=== PATIENT | female | born 1945 | race Caucasian/White ===

== ENCOUNTER 2021-08-20 16:41 | Inpatient (IN) | payer MEDICARE, BC, SELFPAY ==
[2021-08-20 17:22] VITALS: BMI 35.4
--- NOTE | 2021-08-20 18:43 | PC.NURSE ---
Pt arrived via stretcher/ambulance. Pt refused to sign a CV, Dr Dominguez signed a section 12. Pt refused to sign paperwork or participate in assessment paperwork. The pt is exit seeking at the moment. Will attempt to complete paperwork at later time with pt.
[2021-08-20 20:12] VITALS: BP 139/63; PULSE 76; RESP 16; TEMP 36.6; O2SAT 96
--- NOTE | 2021-08-21 05:14 | PC.NURSE ---
Pt isolated in room this evening except coming out twice to tell us she is leaving and we can give her things to other people. Pt argued that today was not Thur, 17. She finally returned back to bed after telling her that we will discus her stay here after breakfast. Pt would only answer I'm not answering any questions no matter who ask them. I am no bodies business She did allow vitals to be taken T 97.9 P76 R 18 BP 139/63 O2 96. Pt did not eat anything for dinner she stated but was not hungry. Pt was exit seeking the twice she got up, going to all doors to see if they open. Pt denied any pain and would not reply about medical history or current concerns.
[2021-08-21 07:30] VITALS: BP 143/76; PULSE 93; RESP 16; TEMP 36.2; O2SAT 100
[2021-08-21] MEDS: Losartan Potassium 50 MG TABLET 100 MG PO (10:06)
[2021-08-21] MEDS: Metoprolol Tartrate 25 MG TABLET PO (10:06)
[2021-08-21] MEDS: Cyanocobalamin (Vitamin B-12) 1,000 MCG TABLET 1000 MCG PO (10:06)
[2021-08-21] MEDS: Sertraline HCL 50 MG TABLET PO (10:23)
--- NOTE | 2021-08-21 10:28 | PC.NURSE ---
ordered meds for pt Germaine Palafox this AM. 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
--- NOTE | 2021-08-21 12:49 | MHC.CLN ---
NUTRITION ASKED PATIENT ABOUT DIABETES. SHE WOULD LIKE TO HAVE A DIABETIC DIET DURING ADMISSION. TAKES METFORMIN. DIET CHANGED TO DIABETIC 2000 KCALS.
--- NOTE | 2021-08-21 16:21 | HO.PSYADMNOT ---
HPI Date of Service: 08/21/21 Chief Complaint: depessive Sources of Information: patient interviewed, chart reviewed and crisis/core team assessment reviewed Additional Sources of Information: Family HPI Subjective Notes: Section 12B Healthcare Proxy: Yes Guardianship: No Narrative: the patient is a 76-year-old female, , living in an in-law apartment close to her son, with a limited prior psychiatric history referred from the emergency room of another hospital for psychotic symptoms and disorganized behavior. According to the crisis report, the patient was agitated, she was sexually disinhibited towards her son and aggressive towards her daughter in low. Also she was confused, and she needed to be Section 12 to the emergency room. The patient was transferred after being medically care from another emergency room to this facility and on admission, she refused to sign a conditional voluntary admission paperwork. She was assessed at bedside and she was angry, uncooperative and stating that she was going to leave tomorrow. She was a very poor historian. On admission, her son was contacted after the patient gave us permission to talk with him and apparently she has being declining in her mental abilities for the last 6 months with progressive short-term memory and several episodes of delirium that led her to the emergency room 3 times. Apparently there is no prior history of mental illness but she has a very strong family history of schizophrenia and her family. Past Psychiatric History: She had several admissions to the emergency room for disorganized behavior and paranoia in the last 6 months. According to the patient, her 1st psychiatric contact was 6 years ago when her and she was started on antidepressants that according to her does not work. Medical Evaluation Reviewed: Hospitalist Owen Pending [facility] Family History: On her maternal side of her family there were several members with schizophrenia, she has a now and that was institutionalized for psychosis Social History: she moved to [place] in the last months, she used to reside in [place] but she moved to this area and she lives in an independent apartment close to the property of her son. She is a , she has good social support under is no evidence of trauma in the past Substance History: denies Trauma History: denies Diagnostics Vital Signs (24Hr): Vital Signs - 24 hr 08/20/21 20:12 08/21/21 07:30 Temperature 97.9 F 97.1 F Pulse Rate 76 93 Respiratory Rate 16 16 Blood Pressure 139/63 143/76 H Pulse Oximetry 96 100 BMI result Body Mass Index 35.4 Meds/Allergies Meds Home Medications Atorvastatin Calcium (Atorvastatin Calcium 20 Mg Tablet) 20 mg PO BEDTIME [facility] Cyanocobalamin (Cyanocobalamin (Vitamin B-12) 1,000 Mcg Tablet) 1,000 mcg PO DAILY [facility] Last Admin: 08/21/21 10:06 Dose: 1,000 mcg Documented by: Losartan Potassium (Losartan Potassium 50 Mg Tablet) 100 mg PO DAILY [facility]; Protocol Last Admin: 08/21/21 10:06 Dose: 100 mg Documented by: Magnesium Oxide (Magnesium Oxide 400 Mg Tablet) 400 mg PO BID [facility] Metformin HCl (Metformin Hcl Er 500 Mg Tab.Er.24h) 500 mg PO DAILY [facility] Metoprolol Tartrate (Metoprolol Tartrate 25 Mg Tablet) 25 mg PO DAILY [facility]; Protocol Last Admin: 08/21/21 10:06 Dose: 25 mg Documented by: Ondansetron HCl (Ondansetron Odt 8 Mg Tab.Rapdis) 8 mg TRANSLINGU Q8H [facility] Last Admin: 08/21/21 10:09 Dose: Not Given Documented by: Sertraline HCl (Sertraline Hcl 50 Mg Tablet) 50 mg PO DAILY [facility] Last Admin: 08/21/21 10:23 Dose: 50 mg Documented by: Allergies Allergies Allergy/AdvReac Type Severity Reaction Status Date / Time No Known Allergies Allergy Verified 08/20/21 17:22 Mental Status Exam Mental Status Exam Patient Appearance: Disheveled Patient Orientation: Person and Situation Level of Consciousness: Awake and Disoriented Patient Behavior: Guarded, Suspicious and Belligerent Mood Description: Hostile and Labile Affect Description: Constricted Ability to Follow Directions: Fair Speech Pattern: Clear Hallucinations: None Delusions: Paranoid Ideation Thought Process: Illogical and Distracted Thought Content: positive for Perseveration, positive for Poverty of Content and positive for Loose Associations Judgement: Poor Assessment & Plan Assessment & Plan (1) Delirium: Status: Acute Code(s): R41.0 - Disorientation, unspecified Assessment and Plan: the patient is an elderly female with a long history of depression for the last 6 years after the of her that has being psychotic, paranoid and disorganized in the last months. She was brought due to inappropriate sexual behavior, dizzy vision and altered mental status most likely due to UTI. Plan 1. Continue same medications. 2. Start risperidone 0.25 p.o. t.i.d. to target psychosis. 3. Hospitalist consult (2) Psychosis: Status: Acute Code(s): F29 - Unspecified psychosis not due to a substance or known physiological condition Reason for continued inpatient stay Substantial Risk for: inability to function, rapid decompensation and med/psych decompensation
[2021-08-21 18:00] VITALS: BP 164/74; PULSE 70; RESP 18; TEMP 36.4; O2SAT 96
[2021-08-21] MEDS: Magnesium Oxide 400 MG TABLET PO (20:45)
[2021-08-21] MEDS: risperiDONE 0.25 MG TABLET PO (20:45)
[2021-08-21] MEDS: Atorvastatin Calcium 20 MG TABLET PO (20:45)
[2021-08-22 07:00] VITALS: BMI 35.4
[2021-08-22 07:13] LABS: MANUAL DIFF FLAG NO
[2021-08-22 07:16] LABS: Basophils Percent Auto 0.8 % (0-2); Eosinophils Absolute Auto 0.1 X10*3/uL (0.0-0.4); Eosinophils Percent Auto 2.3 % (0-4); Hematocrit 41.6 % (37.0-47.0); Hemoglobin 13.6 g/dl (12.0-16.0); Imm Gran Abs Auto 0.02 X10*3/uL (0.00-0.03); Imm Gran Pct Auto 0.4 % (0.0-0.4); Lymphocytes Percent Auto 19.1 % (20-40); Mean Corpuscular HGB Conc 32.7 g/dl (31.0-35.0); Mean Corpuscular Hemoglobin 26.5 pg (27.0-33.0); Mean Corpuscular Volume 80.9 fL (80.0-98.0); Mean Platelet Volume 11.1 fL (9.4-12.3); Monocytes Absolute Auto 0.5 X10*3/uL (0.1-1.2); Monocytes Percent Auto 8.5 % (2-11); Neutrophils Absolute Auto 3.7 x10*3/uL (2.0-8.3); Neutrophils Percent Auto 68.9 % (45-73); Platelet Count 151 X10*3/uL (160-400); Red Blood Count 5.14 X10*6/uL (4.20-5.50); Red Cell Distribution Width 14.5 % (11.0-16.0); White Blood Count 5.3 X10*3/uL (4.8-10.8)
[2021-08-22 07:29] LABS: Estimated Average Glucose 128 mg/dL; Hemoglobin A1c % 6.1 %
[2021-08-22 07:30] LABS: Alanine Aminotransferase 6 U/L (0-31); Albumin Level 3.9 g/dL (3.5-5.0); Alkaline Phosphatase 58 U/L (39-117); Anion Gap 14 (12-20); Aspartate Amino Transferase 10 U/L (5-31); Bilirubin Direct 0.3 mg/dL (0.0-0.5); Bilirubin Total 0.8 mg/dL (0.0-1.0); Blood Urea Nitrogen 18 mg/dL (9-16); Calcium 9.4 mg/dL (8.4-10.2); Carbon Dioxide 27 mmol/L (22-29); Chloride 104 mmol/L (96-108); Cholesterol 142 mg/dL; Creatinine Clr Calc Pharmacy 45.1; Estimated Glomerular Filt Rate 46; Glucose Random 145 mg/dL (60-115); HDL Cholesterol 43 mg/dL; LDL Cholesterol Calculated 76 mg/dl; Potassium 3.9 mmol/L (3.3-5.1); Sodium 141 mmol/L (135-145); Total Protein 6.3 g/dL (6.5-8.0); Triglycerides 117 mg/dL
[2021-08-22] MEDS: Losartan Potassium 50 MG TABLET 100 MG PO (08:51)
[2021-08-22] MEDS: risperiDONE 0.25 MG TABLET PO (08:51)
[2021-08-22] MEDS: Metoprolol Tartrate 25 MG TABLET PO (08:51)
[2021-08-22] MEDS: Magnesium Oxide 400 MG TABLET PO ×2 (08:51→20:03)
[2021-08-22] MEDS: metFORMIN HCl ER 500 MG TAB.ER.24H PO (08:51)
[2021-08-22] MEDS: Cyanocobalamin (Vitamin B-12) 1,000 MCG TABLET 1000 MCG PO (08:51)
[2021-08-22] MEDS: Sertraline HCL 50 MG TABLET PO (08:52)
[2021-08-22] MEDS: Ondansetron ODT 8 MG TAB.RAPDIS TRANSLINGU ×2 (08:52→20:02)
[2021-08-22 10:00] VITALS: BP 124/61; PULSE 60
[2021-08-22 11:04] VITALS: BP 185/79; PULSE 76; RESP 16; TEMP 36.1; O2SAT 98
--- NOTE | 2021-08-22 15:58 | HO.HSGERICON ---
History of Present Illness Data of Consult Service Date: 08/22/21 Primary Care Provider: Unknown Physician HPI Reason for consult: dm, htn 76F admitted to inpatient psychiatry. patient has medically history of DM, hld and htn. she denies chest pain, fevers, sob. Review of Systems Review of Systems: Yes all other systems are reviewed and are negative [facility] Medical History (Updated 08/22/21 @ 16:11 by Ramon Salas MD) Diabetes HLD (hyperlipidemia) HTN (hypertension) Family History Mother Schizophrenia Social History Household Members: Family Housing: House Do you presently have visiting nurse or other home services: No Unable to assess alcohol history related to: Refusing to respond Patient Tobacco Use Status: Former Tobacco user Quit Date: 12/07/93 Tobacco use type: Cigarette Years Smoked: 27 Smoked in Last 30 Days: No e-Cigarette/Vaping Use: Currently Using Frequency of e-Cigarette/Vaping Use: multi times per day Patient Interested in Nicotine Replacement: No Patient Given Instructions on How to Stop Smoking: Yes Date Education Initiated: 08/20/21 Second Hand Smoke Exposure: No Substance Use Type: Marijuana Substance Use Frequency: Daily Last Used Substance: Unknown Currently Displaying Signs/Symptoms of Drug Intoxication Withdrawal: No Any prior treatment program specific to substance use: No Have you been hit, kicked, punched, or otherwise hurt by someone within the past year? If so, by whom?: No Do you feel safe in your current relationship?: No Current Relationship Is there a partner from a previous relationship who is making you feel unsafe now?: No Are you made to feel afraid or neglected: No Advance Directives: No Advance Directives Information Provided: Yes Advance Directives on File: No Do you have thoughts of harming others: None Do you have a plan to hurt others: No Plan Recently lost weight without trying: No Eating poorly because of decreased appetite: No Nutrition Risks: No Nutritional Risk Patient : No : No Poor oral hygiene: Yes service: No Sexual orientation: Straight/Heterosexual Meds Allergies Allergy/AdvReac Type Severity Reaction Status Date / Time No Known Allergies Allergy Verified 08/20/21 17:22 Active Medications: Current Medications Atorvastatin Calcium (Atorvastatin Calcium 20 Mg Tablet) 20 mg PO BEDTIME [facility] Last Admin: 08/21/21 20:45 Dose: 20 mg Documented by: Cyanocobalamin (Cyanocobalamin (Vitamin B-12) 1,000 Mcg Tablet) 1,000 mcg PO DAILY [facility] Last Admin: 08/22/21 08:51 Dose: 1,000 mcg Documented by: Losartan Potassium (Losartan Potassium 50 Mg Tablet) 100 mg PO DAILY [facility]; Protocol Last Admin: 08/22/21 08:51 Dose: 100 mg Documented by: Magnesium Oxide (Magnesium Oxide 400 Mg Tablet) 400 mg PO BID [facility] Last Admin: 08/22/21 08:51 Dose: 400 mg Documented by: Metformin HCl (Metformin Hcl Er 500 Mg Tab.Er.24h) 500 mg PO DAILY [facility] Last Admin: 08/22/21 08:51 Dose: 500 mg Documented by: Metoprolol Tartrate (Metoprolol Tartrate 25 Mg Tablet) 25 mg PO DAILY [facility]; Protocol Last Admin: 08/22/21 08:51 Dose: 25 mg Documented by: Ondansetron HCl (Ondansetron Odt 8 Mg Tab.Rapdis) 8 mg TRANSLINGU Q8H [facility] Last Admin: 08/22/21 08:52 Dose: 8 mg Documented by: Risperidone (Risperidone 0.25 Mg Tablet) 0.25 mg PO BID [facility] Last Admin: 08/22/21 08:51 Dose: 0.25 mg Documented by: Sertraline HCl (Sertraline Hcl 50 Mg Tablet) 50 mg PO DAILY [facility] Last Admin: 08/22/21 08:52 Dose: 50 mg Documented by: Home Medications Medication Instructions Recorded Confirmed Last Taken Type atorvastatin 20 mg tablet 20 mg PO BEDTIME 08/20/21 08/20/21 Unknown History cyanocobalamin (vitamin B-12) 1,000 mcg PO DAILY 08/20/21 08/20/21 Unknown History 1,000 mcg tablet (Vitamin B-12) losartan 100 mg tablet 100 mg PO DAILY 08/20/21 08/20/21 Unknown History magnesium oxide 400 mg PO BID 08/20/21 08/20/21 Unknown History metformin 500 mg tablet,extended 500 mg PO DAILY 08/20/21 08/20/21 Unknown History release 24 hr metoprolol tartrate 50 mg tablet 25 mg PO DAILY 08/20/21 08/20/21 Unknown History (Lopressor) ondansetron 8 mg disintegrating 8 mg PO Q8H 08/20/21 08/20/21 Unknown History tablet sertraline 50 mg tablet 50 mg PO DAILY 08/20/21 08/20/21 Unknown History Results Labs CBC and Chem 7: 08/22/21 06:59 08/22/21 06:59 Labs: Laboratory Results - last 24 hr 08/22/21 08/22/21 08/22/21 06:59 06:59 06:59 MCV 80.9 MCH 26.5 L MCHC 32.7 RDW 14.5 Plt Count 151 L MPV 11.1 Immature Gran % (Auto) 0.4 Neut % (Auto) 68.9 Lymph % (Auto) 19.1 L [place] % (Auto) 8.5 Eos % (Auto) 2.3 Baso % (Auto) 0.8 Lymph # (Auto) 1.0 L [place] # (Auto) 0.5 Eos # (Auto) 0.1 Baso # (Auto) 0.0 Abs Immat Gran (auto) 0.02 Absolute Neuts (auto) 3.7 Absolute Nucleated RBC 0.000 Nucleated RBC % (auto) 0.0 Anion Gap 14 Estim Creat Clear Calc 45.1 Estimated GFR 46 Random Glucose 145 H Estimat Average Glucose 128 Hemoglobin A1c % 6.1 Calcium 9.4 Total Bilirubin 0.8 Direct Bilirubin 0.3 AST 10 ALT 6 Alkaline Phosphatase 58 Total Protein 6.3 L Albumin 3.9 Triglycerides 117 Cholesterol 142 LDL Cholesterol, Calc 76 HDL Cholesterol 43 TSH 0.70 Assessment and Plan (1) HTN (hypertension): Status: Acute (2) Diabetes: Status: Acute Plan 76F admitted to inpatient psychiatry DM continue metformin, diabetic diet HTN lopressor, losartan hld statin Physical Exam Vital Signs: Last Vital Signs Temp 97 F 08/22/21 11:04 Pulse 76 08/22/21 11:04 Resp 16 08/22/21 11:04 BP 185/79 H 08/22/21 11:04 Pulse Ox 98 08/22/21 11:04 BMI result Body Mass Index 35.4 General: AO X 3, no acute distress Resp: CTA bilateral, no accessory muscles used CVS: S1,S2,RRR GI: soft, non tender, non distended Neuro: motor grossly intact, alert Psych: appropriate affect, appropriate insight Neuro Cranial nerves: Yes CN's II-XII intact bilaterally
--- NOTE | 2021-08-22 16:09 | P.PNPSI_ITS ---
Subjective Subjective Date of Service: 08/22/21 Reason For Visit: depessive Subjective Notes: Section 12B Interim History: the nursing staff reported the patient has been paranoid and seclusive mostly in her room, unable to participate in groups or activities in the facility. She was notice that she sometimes he readable at times. On interview, the patient denies new symptoms she refused to engage in the conversation and she stated she was feeling fine. She is compliant with treatment but she looks confused and disoriented. No side effects with a low dose of risperidone 0.5 mg p.o. b.i.d., no evidence of EPS. We will increase the dose of Risperdal today Mental Status Exam Mental Status Exam Patient Appearance: Appropriate Patient Orientation: Person Level of Consciousness: Follows Commands Patient Behavior: Guarded, Passive and Suspicious Mood Description: Fearful and Blunted Affect Description: Labile Patient Cognition Impaired: Yes Ability to Follow Directions: Fair Speech Pattern: Appropriate Hallucinations: None Delusions: Paranoid Ideation Thought Process: Evasive and Slowed Thinking Thought Content: positive for Liberty and positive for Poverty of Content Judgement: Poor Diagnostics Vital Signs (24Hr): Vital Signs - 24 hr 08/21/21 18:00 08/22/21 11:04 Temperature 97.6 F 97 F Pulse Rate 70 76 Respiratory Rate 18 16 Blood Pressure 164/74 H 185/79 H Pulse Oximetry 96 98 BMI result Body Mass Index 35.4 Labs Results: 08/22/21 06:59 08/22/21 06:59 Labs: Laboratory Results - last 48 hr 08/22/21 08/22/21 08/22/21 06:59 06:59 06:59 WBC 5.3 RBC 5.14 Hgb 13.6 Hct 41.6 MCV 80.9 MCH 26.5 L MCHC 32.7 RDW 14.5 Plt Count 151 L MPV 11.1 Immature Gran % (Auto) 0.4 Neut % (Auto) 68.9 Lymph % (Auto) 19.1 L [place] % (Auto) 8.5 Eos % (Auto) 2.3 Baso % (Auto) 0.8 Lymph # (Auto) 1.0 L [place] # (Auto) 0.5 Eos # (Auto) 0.1 Baso # (Auto) 0.0 Abs Immat Gran (auto) 0.02 Absolute Neuts (auto) 3.7 Absolute Nucleated RBC 0.000 Nucleated RBC % (auto) 0.0 Sodium 141 Potassium 3.9 Chloride 104 Carbon Dioxide 27 Anion Gap 14 BUN 18 H Creatinine 1.15 Estim Creat Clear Calc 45.1 Estimated GFR 46 Random Glucose 145 H Estimat Average Glucose 128 Hemoglobin A1c % 6.1 Calcium 9.4 Total Bilirubin 0.8 Direct Bilirubin 0.3 AST 10 ALT 6 Alkaline Phosphatase 58 Total Protein 6.3 L Albumin 3.9 Triglycerides 117 Cholesterol 142 LDL Cholesterol, Calc 76 HDL Cholesterol 43 TSH 0.70 Medications Medications Current Medications Atorvastatin Calcium (Atorvastatin Calcium 20 Mg Tablet) 20 mg PO BEDTIME [facility] Last Admin: 08/21/21 20:45 Dose: 20 mg Documented by: Cyanocobalamin (Cyanocobalamin (Vitamin B-12) 1,000 Mcg Tablet) 1,000 mcg PO DAILY [facility] Last Admin: 08/22/21 08:51 Dose: 1,000 mcg Documented by: Losartan Potassium (Losartan Potassium 50 Mg Tablet) 100 mg PO DAILY [facility]; Mary col Last Admin: 08/22/21 08:51 Dose: 100 mg Documented by: Magnesium Oxide (Magnesium Oxide 400 Mg Tablet) 400 mg PO BID [facility] Last Admin: 08/22/21 08:51 Dose: 400 mg Documented by: Metformin HCl (Metformin Hcl Er 500 Mg Tab.Er.24h) 500 mg PO DAILY [facility] Last Admin: 08/22/21 08:51 Dose: 500 mg Documented by: Metoprolol Tartrate (Metoprolol Tartrate 25 Mg Tablet) 25 mg PO DAILY [facility]; Protocol Last Admin: 08/22/21 08:51 Dose: 25 mg Documented by: Ondansetron HCl (Ondansetron Odt 8 Mg Tab.Rapdis) 8 mg TRANSLINGU Q8H [facility] Last Admin: 08/22/21 08:52 Dose: 8 mg Documented by: Risperidone (Risperidone 0.25 Mg Tablet) 0.25 mg PO BID [facility] Last Admin: 08/22/21 08:51 Dose: 0.25 mg Documented by: Sertraline HCl (Sertraline Hcl 50 Mg Tablet) 50 mg PO DAILY [facility] Last Admin: 08/22/21 08:52 Dose: 50 mg Documented by: Allergies Allergies Allergy/AdvReac Type Severity Reaction Status Date / Time No Known Allergies Allergy Verified 08/20/21 17:22 Assessment & Plan Assessment & Plan (1) Delirium: Status: Acute Code(s): R41.0 - Disorientation, unspecified Assessment and Plan: the patient is an elderly female with a long history of depression for the last 6 years after the of her that has being psychotic, pa ranoid and disorganized in the last months. She was brought due to inappropriate sexual behavior, dizzy vision and altered mental status most likely due to UTI. Plan 1. Continue same medications. 2. increase risperidone up to 0.5 mg p.o. b.i.d. to target psychosis. 3. Hospitalist consult (2) Psychosis: Status: Acute Code(s): F29 - Unspecified psychosis not due to a substance or known physiological condition I spent minutes with the patient and/or on the patient floor today, greater than?50% of which was spent counseling/coordinating care. Reason for contiued inpatient stay Substantial Risk for: inability to function, rapid decompensation and med/psych decompensation
[2021-08-22] MEDS: risperiDONE 0.25 MG TABLET 0.5 MG PO (20:00)
[2021-08-22] MEDS: Atorvastatin Calcium 20 MG TABLET PO (20:01)
[2021-08-22 20:18] VITALS: BP 106/54; PULSE 66; RESP 17; TEMP 36.4; O2SAT 95
[2021-08-23 06:00] VITALS: BP 134/60; PULSE 69; RESP 14; TEMP 36.6; O2SAT 98
[2021-08-23] MEDS: Cyanocobalamin (Vitamin B-12) 1,000 MCG TABLET 1000 MCG PO (08:23)
[2021-08-23] MEDS: metFORMIN HCl ER 500 MG TAB.ER.24H PO (08:23)
[2021-08-23] MEDS: Magnesium Oxide 400 MG TABLET PO ×2 (08:24→20:11)
[2021-08-23] MEDS: Ondansetron ODT 8 MG TAB.RAPDIS TRANSLINGU (08:24)
[2021-08-23] MEDS: Metoprolol Tartrate 25 MG TABLET PO (08:24)
[2021-08-23] MEDS: Sertraline HCL 50 MG TABLET PO (08:24)
[2021-08-23] MEDS: Losartan Potassium 50 MG TABLET 100 MG PO (08:24)
[2021-08-23] MEDS: risperiDONE 0.25 MG TABLET 0.5 MG PO ×2 (08:25→20:12)
[2021-08-23 14:05] LABS: Appearance Urine CLEAR; Color Urine YELLOW; Glucose Urine UA NEG (NEG); Leukocyte Esterase Urine 1+ (NEG); Nitrite Urine NEG (NEG); PH 5.5 (5.0-8.0); Specific Gravity - Urine >= 1.030 (1.005-1.025); Urine Blood NEG (NEG); Urine Ketones NEG (NEG); Urine Protein NEG (NEG-TRACE)
[2021-08-23 14:31] LABS: Bacteria Urine 1+ /LPF; RBC Urine 0-2 /HPF (0); Squamous Epithelial Cell Urine 2+ /LPF
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
[2021-08-23] MEDS: Atorvastatin Calcium 20 MG TABLET PO (20:11)
[2021-08-23 20:14] VITALS: BP 112/56; PULSE 67; RESP 17; TEMP 36.5; O2SAT 97
[2021-08-23] MEDS: traZODone HCL 25 MG HALFTAB PO (21:46)
[2021-08-23] MEDS: Acetaminophen 325 MG TABLET 650 MG PO (21:46)
[2021-08-24 06:00] VITALS: BP 143/76; PULSE 73; TEMP 36.1; O2SAT 94
[2021-08-24] MEDS: Magnesium Oxide 400 MG TABLET PO (08:57)
[2021-08-24] MEDS: Losartan Potassium 50 MG TABLET 100 MG PO (08:57)
[2021-08-24] MEDS: Cyanocobalamin (Vitamin B-12) 1,000 MCG TABLET 1000 MCG PO (08:57)
[2021-08-24] MEDS: metFORMIN HCl ER 500 MG TAB.ER.24H PO (08:57)
[2021-08-24] MEDS: risperiDONE 0.25 MG TABLET 0.5 MG PO (08:57)
[2021-08-24] MEDS: Sertraline HCL 50 MG TABLET PO (08:57)
[2021-08-24] MEDS: Metoprolol Tartrate 25 MG TABLET PO (08:57)
--- NOTE | 2021-08-24 11:30 | P.PNPSI_ITS ---
Subjective Subjective Date of Service: 08/24/21 Reason For Visit: depessive Interim History: pt encountered lying in her bed, awake. irritable and verbally aggressive/abusive. certain it is august 27, saying she saw it on her menu, and becomes combative when informed it is not yet the and that perhaps she is mistaken. interview ends rather abruptly due to verbal aggression. per staff, observed to be sleeping but claims she is not sleeping. Mental Status Exam Mental Status Exam Narrative: dressed in hospital attire, lying in bed. cooperative with interview. no PMA/PMR. speech nml in rate, amount, loudness, tone, latency. thoughts linear and logical; cognitively impaired, however. affect constricted, moderately labile. no SI/HI/AVH expressed. Diagnostics Vital Signs (24Hr): Vital Signs - 24 hr 08/23/21 20:14 08/24/21 06:00 Temperature 97.7 F 96.9 F Pulse Rate 67 73 Respiratory Rate 17 Blood Pressure 112/56 L 143/76 H Pulse Oximetry 97 94 BMI result Body Mass Index 35.4 Labs Results: 08/22/21 06:59 08/22/21 06:59 Labs: Laboratory Results - last 48 hr 08/23/21 13:00 Urine Color YELLOW Urine Appearance CLEAR Urine pH 5.5 Ur Specific [place] >= 1.030 H Urine Protein NEG Urine Glucose (UA) NEG Urine Ketones NEG Urine Blood NEG Urine Nitrite NEG Ur Leukocyte Esterase 1+ H Urine RBC 0-2 Urine WBC 10-14 H Ur Squamous Epith Cells 2+ Urine Bacteria 1+ Medications Medications Current Medications Acetaminophen (Acetaminophen 325 Mg Tablet) 650 mg PO Q6H PRN PRN Reason: Pain, Mild (Pain Scale 1-3) Last Admin: 08/23/21 21:46 Dose: 650 mg Documented by: Atorvastatin Calcium (Atorvastatin Calcium 20 Mg Tablet) 20 mg PO BEDTIME [facility] Last Admin: 08/23/21 20:11 Dose: 20 mg Documented by: Cyanocobalamin (Cyanocobalamin (Vitamin B-12) 1,000 Mcg Tablet) 1,000 mcg PO DAILY [facility] Last Admin: 08/24/21 08:57 Dose: 1,000 mcg Documented by: Losartan Potassium (Losartan Potassium 50 Mg Tablet) 100 mg PO DAILY [facility]; Protocol Last Admin: 08/24/21 08:57 Dose: 100 mg Documented by: Magnesium Oxide (Magnesium Oxide 400 Mg Tablet) 400 mg PO BID [facility] Last Admin: 08/24/21 08:57 Dose: 400 mg Documented by: Metformin HCl (Metformin Hcl Er 500 Mg Tab.Er.24h) 500 mg PO DAILY [facility] Last Admin: 08/24/21 08:57 Dose: 500 mg Documented by: Metoprolol Tartrate (Metoprolol Tartrate 25 Mg Tablet) 25 mg PO DAILY [facility]; Protocol Last Admin: 08/24/21 08:57 Dose: 25 mg Documented by: Ondansetron HCl (Ondansetron Odt 8 Mg Tab.Rapdis) 8 mg TRANSLINGU Q8H [facility] Last Admin: 08/24/21 04:24 Dose: Not Given Documented by: Risperidone (Risperidone 0.25 Mg Tablet) 0.5 mg PO BID [facility] Last Admin: 08/24/21 08:57 Dose: 0.5 mg Documented by: Risperidone (Risperidone 0.25 Mg Tablet) 0.25 mg PO Q4H PRN PRN Reason: Anxiety Sertraline HCl (Sertraline Hcl 50 Mg Tablet) 50 mg PO DAILY [facility] Last Admin: 08/24/21 08:57 Dose: 50 mg Documented by: Trazodone HCl (Trazodone Hcl 25 Mg Halftab) 25 mg PO BEDTIME PRN PRN Reason: Insomnia Last Admin: 08/23/21 21:46 Dose: 25 mg Documented by: Allergies Allergies Allergy/AdvReac Type Severity Reaction Status Date / Time No Known Allergies Allergy Verified 08/20/21 17:22 Assessment & Plan Assessment & Plan (1) Delirium: Status: Acute Code(s): R41.0 - Disorientation, unspecified Assessment and Plan: the patient is an elderly female with a long history of depression for the last 6 years after the of her that has being psychotic, paranoid and disorganized in the last months. She was brought due to inappropriate sexual behavior, dizzy vision and altered mental status most likely due to UTI. Plan 1. Continue same medications. 2. increase risperidone up to 0.5 mg p.o. b.i.d. to target psychosis. 3. Hospitalist consult (2) Psychosis: Status: Acute Code(s): F29 - Unspecified psychosis not due to a substance or known physiological condition (3) Diabetes: Status: Acute Code(s): E11.9 - Type 2 diabetes mellitus without complications (4) HTN (hypertension): Status: Acute Code(s): I10 - Essential (primary) hypertension I spent minutes with the patient and/or on the patient floor today, greater than?50% of which was spent counseling/coordinating care. Reason for contiued inpatient stay Substantial Risk for: inability to function and rapid decompensation
[2021-08-24 18:00] VITALS: BP 116/58; PULSE 65; RESP 17; TEMP 36.6; O2SAT 96
--- NOTE | 2021-08-24 21:49 | PC.NURSE ---
pt became paranoid about myself and other nurse plotting with her medications. she stated that she has jennifer and can hear everything we say through her mind. she is not medication compliant. she has been offered trazadone which she states makes her jittery. she states that she takes a medicine at home for sleep that starts with the letter p. she is unsure of the name but is sure the dose is 50 mg. she states that Benadryl will also make her jittery. she is upset that i don't know the side effects she experiences with trazadone,Benadryl,and Lipitor. she states that she will not take any medications tonight. she adamantly refuses all medications at this juncture.
[2021-08-25 06:00] VITALS: BP 130/69; PULSE 63; TEMP 35.8; O2SAT 95
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
--- NOTE | 2021-08-25 10:52 | HO.PSYCHPN ---
Subjective Subjective Date of Service: 08/25/21 Reason For Visit: depessive Interim History: pt found lying in her bed with lights out, awake. irritable, dismissive. states she has already been discharged and is being held against her will. states MD is aware of this and it is a human rights violation. states she will be taking you down with me. she then instructs MD to leave her room. per staff, refused meds last evening. agitated, yelling trying exits janny. calm this morning. Mental Status Exam Mental Status Exam Narrative: adequately dressed and groomed, lying in bed. not cooperative with interview. no PMA/PMR. speech nml in rate, incr in amount, and loudness. nml tone, decr latency. thoughts illogical and delusional. affect constricted, moderately labile. no SI/HI/AVH expressed. Diagnostics Vital Signs (24Hr): Vital Signs - 24 hr 08/24/21 18:00 Temperature 97.9 F Pulse Rate 65 Respiratory Rate 17 Blood Pressure 116/58 L Pulse Oximetry 96 BMI result Body Mass Index 35.4 Labs Results: 08/22/21 06:59 08/22/21 06:59 Labs: Laboratory Results - last 48 hr 08/23/21 13:00 Urine Color YELLOW Urine Appearance CLEAR Urine pH 5.5 Ur Specific [place] >= 1.030 H Urine Protein NEG Urine Glucose (UA) NEG Urine Ketones NEG Urine Blood NEG Urine Nitrite NEG Ur Leukocyte Esterase 1+ H Urine RBC 0-2 Urine WBC 10-14 H Ur Squamous Epith Cells 2+ Urine Bacteria 1+ Medications Medications Current Medications Acetaminophen (Acetaminophen 325 Mg Tablet) 650 mg PO Q6H PRN PRN Reason: Pain, Mild (Pain Scale 1-3) Last Admin: 08/23/21 21:46 Dose: 650 mg Documented by: Atorvastatin Calcium (Atorvastatin Calcium 20 Mg Tablet) 20 mg PO BEDTIME [facility] Last Admin: 08/24/21 21:46 Dose: Not Given Documented by: Cyanocobalamin (Cyanocobalamin (Vitamin B-12) 1,000 Mcg Tablet) 1,000 mcg PO DAILY [facility] Last Admin: 08/24/21 08:57 Dose: 1,000 mcg Documented by: Losartan Potassium (Losartan Potassium 50 Mg Tablet) 100 mg PO DAILY [facility]; Protocol Last Admin: 08/24/21 08:57 Dose: 100 mg Documented by: Magnesium Oxide (Magnesium Oxide 400 Mg Tablet) 400 mg PO BID [facility] Last Admin: 08/24/21 22:02 Dose: Not Given Documented by: Metformin HCl (Metformin Hcl Er 500 Mg Tab.Er.24h) 500 mg PO DAILY [facility] Last Admin: 08/24/21 08:57 Dose: 500 mg Documented by: Metoprolol Tartrate (Metoprolol Tartrate 25 Mg Tablet) 25 mg PO DAILY [facility]; Protocol Last Admin: 08/24/21 08:57 Dose: 25 mg Documented by: Ondansetron HCl (Ondansetron Odt 8 Mg Tab.Rapdis) 8 mg TRANSLINGU Q8H [facility] Last Admin: 08/25/21 04:27 Dose: Not Given Documented by: Risperidone (Risperidone 0.25 Mg Tablet) 0.5 mg PO BID [facility] Last Admin: 08/24/21 21:48 Dose: Not Given Documented by: Risperidone (Risperidone 0.25 Mg Tablet) 0.25 mg PO Q4H PRN PRN Reason: Anxiety Sertraline HCl (Sertraline Hcl 50 Mg Tablet) 50 mg PO DAILY [facility] Last Admin: 08/24/21 08:57 Dose: 50 mg Documented by: Trazodone HCl (Trazodone Hcl 25 Mg Halftab) 25 mg PO BEDTIME PRN PRN Reason: Insomnia Last Admin: 08/23/21 21:46 Dose: 25 mg Documented by: Allergies Allergies Allergy/AdvReac Type Severity Reaction Status Date / Time No Known Allergies Allergy Verified 08/20/21 17:22 Assessment & Plan Assessment & Plan (1) Delirium: Status: Acute Code(s): R41.0 - Disorientation, unspecified Assessment and Plan: the patient is an elderly female with a long history of depression for the last 6 years after the of her that has being psychotic, paranoid and disorganized in the last months. She was brought due to inappropriate sexual behavior, dizzy vision and altered mental status most likely due to UTI. Plan 1. Continue same medications. 2. increase risperidone up to 0.5 mg p.o. b.i.d. to target psychosis. 3. Hospitalist consult (2) Psychosis: Status: Acute Code(s): F29 - Unspecified psychosis not due to a substance or known physiological condition (3) Diabetes: Status: Acute Code(s): E11.9 - Type 2 diabetes mellitus without complications (4) HTN (hypertension): Status: Acute Code(s): I10 - Essential (primary) hypertension I spent minutes with the patient and/or on the patient floor today, greater than?50% of which was spent counseling/coordinating care. Reason for contiued inpatient stay Substantial Risk for: inability to function and rapid decompensation
[2021-08-25 18:00] VITALS: BP 168/73; PULSE 82; RESP 17; TEMP 36.6; O2SAT 98
[2021-08-26 08:49] VITALS: BP 164/78; PULSE 86; RESP 15; TEMP 36.5; O2SAT 99
[2021-08-26] MEDS: Sertraline HCL 50 MG TABLET PO (09:41)
[2021-08-26] MEDS: Losartan Potassium 50 MG TABLET 100 MG PO (09:41)
[2021-08-26] MEDS: metFORMIN HCl ER 500 MG TAB.ER.24H PO (09:42)
[2021-08-26] MEDS: Metoprolol Tartrate 25 MG TABLET PO (09:42)
[2021-08-26] MEDS: Cyanocobalamin (Vitamin B-12) 1,000 MCG TABLET 1000 MCG PO (09:42)
[2021-08-26] MEDS: risperiDONE 0.25 MG TABLET 0.5 MG PO ×2 (09:42→20:12)
[2021-08-26] MEDS: Magnesium Oxide 400 MG TABLET PO ×2 (09:43→20:12)
[2021-08-26] MEDS: Ondansetron ODT 8 MG TAB.RAPDIS TRANSLINGU ×3 (09:43→17:58)
--- NOTE | 2021-08-26 19:39 | HO.PSYCHPN ---
Subjective Subjective Date of Service: 08/26/21 Reason For Visit: depessive Interim History: much brighter in patient's room today, pt correspondingly more pleasant. not dismissive, responsive to MD's question of how he might help pt today. pt states she is having difficulty sleeping. she declines trazodone, saying it does not agree with her. she states she has not tried atarax, however, and would like to. per staff, exit-seeking. refused medications and dinner. slept well overnight, no outbursts last evening. Mental Status Exam Mental Status Exam Narrative: adequately dressed and groomed, lying in bed. cooperative with interview. no PMA/PMR. speech nml in rate, amount, and loudness. nml tone, latency. thoughts logical and no expression of delusion or paranoia. affect constricted, non-labile. no SI/HI/AVH expressed. Diagnostics Vital Signs (24Hr): Vital Signs - 24 hr 08/26/21 08:49 Temperature 97.7 F Pulse Rate 86 Respiratory Rate 15 Blood Pressure 164/78 H Pulse Oximetry 99 BMI result Body Mass Index 35.4 Labs Results: 08/22/21 06:59 08/22/21 06:59 Medications Medications Current Medications Acetaminophen (Acetaminophen 325 Mg Tablet) 650 mg PO Q6H PRN PRN Reason: Pain, Mild (Pain Scale 1-3) Last Admin: 08/23/21 21:46 Dose: 650 mg Documented by: Atorvastatin Calcium (Atorvastatin Calcium 20 Mg Tablet) 20 mg PO BEDTIME [facility] Last Admin: 08/25/21 20:03 Dose: Not Given Documented by: Cyanocobalamin (Cyanocobalamin (Vitamin B-12) 1,000 Mcg Tablet) 1,000 mcg PO DAILY [facility] Last Admin: 08/26/21 09:42 Dose: 1,000 mcg Documented by: Hydroxyzine HCl (Hydroxyzine Hcl 25 Mg Tablet) 25 mg PO BEDTIME [facility] Losartan Potassium (Losartan Potassium 50 Mg Tablet) 100 mg PO DAILY [facility]; Protocol Last Admin: 08/26/21 09:41 Dose: 100 mg Documented by: Magnesium Oxide (Magnesium Oxide 400 Mg Tablet) 400 mg PO BID [facility] Last Admin: 08/26/21 09:43 Dose: 400 mg Documented by: Metformin HCl (Metformin Hcl Er 500 Mg Tab.Er.24h) 500 mg PO DAILY [facility] Last Admin: 08/26/21 09:42 Dose: 500 mg Documented by: Metoprolol Tartrate (Metoprolol Tartrate 25 Mg Tablet) 25 mg PO DAILY [facility]; Protocol Last Admin: 08/26/21 09:42 Dose: 25 mg Documented by: Ondansetron HCl (Ondansetron Odt 8 Mg Tab.Rapdis) 8 mg TRANSLINGU Q8H [facility] Last Admin: 08/26/21 17:58 Dose: 8 mg Documented by: Risperidone (Risperidone 0.25 Mg Tablet) 0.5 mg PO BID [facility] Last Admin: 08/26/21 09:42 Dose: 0.5 mg Documented by: Risperidone (Risperidone 0.25 Mg Tablet) 0.25 mg PO Q4H PRN PRN Reason: Anxiety Sertraline HCl (Sertraline Hcl 50 Mg Tablet) 50 mg PO DAILY [facility] Last Admin: 08/26/21 09:41 Dose: 50 mg Documented by: Trazodone HCl (Trazodone Hcl 25 Mg Halftab) 25 mg PO BEDTIME PRN PRN Reason: Insomnia Last Admin: 08/23/21 21:46 Dose: 25 mg Documented by: Allergies Allergies Allergy/AdvReac Type Severity Reaction Status Date / Time No Known Allergies Allergy Verified 08/20/21 17:22 Assessment & Plan Assessment & Plan (1) Delirium: Status: Acute Code(s): R41.0 - Disorientation, unspecified Assessment and Plan: the patient is an elderly female with a long history of depression for the last 6 years after the of her that has being psychotic, paranoid and disorganized in the last months. She was brought due to inappropriate sexual behavior, dizzy vision and altered mental status most likely due to UTI. Plan 1. Continue same medications. 2. increase risperidone up to 0.5 mg p.o. b.i.d. to target psychosis. 3. Hospitalist consult 4. atarax 25 QHS added 08/26 for sleep per pt request. (2) Psychosis: Status: Acute Code(s): F29 - Unspecified psychosis not due to a substance or known physiological condition (3) Diabetes: Status: Acute Code(s): E11.9 - Type 2 diabetes mellitus without complications (4) HTN (hypertension): Status: Acute Code(s): I10 - Essential (primary) hypertension I spent minutes with the patient and/or on the patient floor today, greater than?50% of which was spent counseling/coordinating care. Reason for contiued inpatient stay Substantial Risk for: inability to function and rapid decompensation
[2021-08-26] MEDS: Atorvastatin Calcium 20 MG TABLET PO (20:12)
[2021-08-26] MEDS: hydrOXYzine HCL 25 MG TABLET PO (20:12)
[2021-08-26 21:10] VITALS: BP 113/56; PULSE 63; RESP 17; TEMP 36.2; O2SAT 97
[2021-08-26] MEDS: Acetaminophen 325 MG TABLET 650 MG PO (21:59)
[2021-08-27 08:00] VITALS: BP 136/61; PULSE 72; RESP 16; TEMP 36.7; O2SAT 98
[2021-08-27] MEDS: metFORMIN HCl ER 500 MG TAB.ER.24H PO (08:52)
[2021-08-27] MEDS: risperiDONE 0.25 MG TABLET 0.5 MG PO (08:52)
[2021-08-27] MEDS: Magnesium Oxide 400 MG TABLET PO ×2 (08:53→20:15)
[2021-08-27] MEDS: Sertraline HCL 50 MG TABLET PO (08:53)
[2021-08-27] MEDS: Cyanocobalamin (Vitamin B-12) 1,000 MCG TABLET 1000 MCG PO (08:53)
[2021-08-27] MEDS: Losartan Potassium 50 MG TABLET 100 MG PO (08:53)
[2021-08-27] MEDS: Metoprolol Tartrate 25 MG TABLET PO (08:53)
[2021-08-27] MEDS: Milk of Magnesia 30 ML ORAL.SUSP PO (11:13)
[2021-08-27] MEDS: Ondansetron ODT 8 MG TAB.RAPDIS TRANSLINGU ×2 (11:13→16:20)
--- NOTE | 2021-08-27 11:54 | P.PNPSI_ITS ---
Subjective Subjective Date of Service: 08/27/21 Reason For Visit: depessive Subjective Notes: Section 7 and Section 8 Interim History: The nursing staff reported the patient did not show any changes in her mental status. As per the doctor's report, over the weekend she was not engageable with him and she was even agitated and refusing medications at night. The neonatal social worker has explained to her son about the the legal status that she is on and the need of finding Section 7 and 8 and we will have a court hearing soon. We will probably ask for continuation. The family wants her back on her apartment. We will have soon a family meeting On interview, the patient was in her room, seclusive, denies new symptoms. She states that she is not a patient here, she is here for safety against her [id number]. Mental Status Exam Mental Status Exam Patient Appearance: Disheveled Patient Orientation: Person Level of Consciousness: Awake and Appropriate Patient Behavior: Guarded and Suspicious Mood Description: Flat Affect Description: Labile Patient Cognition Impaired: No Ability to Follow Directions: Fair Speech Pattern: Clear Delusions: Paranoid Ideation and Ideas of Reference Thought Process: Distracted and Evasive Thought Content: positive for [place], positive for Circumstantial and positive for Poverty of Content Judgement: Poor Diagnostics Vital Signs (24Hr): Vital Signs - 24 hr 08/26/21 21:10 08/27/21 08:00 Temperature 97.1 F 98.1 F Pulse Rate 63 72 Respiratory Rate 17 16 Blood Pressure 113/56 L 136/61 Pulse Oximetry 97 98 BMI result Body Mass Index 35.4 Labs Results: 08/22/21 06:59 08/22/21 06:59 Medications Medications Current Medications Acetaminophen (Acetaminophen 325 Mg Tablet) 650 mg PO Q6H PRN PRN Reason: Pain, Mild (Pain Scale 1-3) Last Admin: 08/26/21 21:59 Dose: 650 mg Documented by: Atorvastatin Calcium (Atorvastatin Calcium 20 Mg Tablet) 20 mg PO BEDTIME [facility] Last Admin: 08/26/21 20:12 Dose: 20 mg Documented by: Cyanocobalamin (Cyanocobalamin (Vitamin B-12) 1,000 Mcg Tablet) 1,000 mcg PO DAILY [facility] Last Admin: 08/27/21 08:53 Dose: 1,000 mcg Documented by: Hydroxyzine HCl (Hydroxyzine Hcl 25 Mg Tablet) 25 mg PO BEDTIME [facility] Last Admin: 08/26/21 20:12 Dose: 25 mg Documented by: Losartan Potassium (Losartan Potassium 50 Mg Tablet) 100 mg PO DAILY [facility]; Protocol Last Admin: 08/27/21 08:53 Dose: 100 mg Documented by: Magnesium Hydroxide (Milk Of Magnesia 30 Ml Oral.Susp) 30 ml PO BID PRN PRN Reason: Constipation Last Admin: 08/27/21 11:13 Dose: 30 ml Documented by: Magnesium Oxide (Magnesium Oxide 400 Mg Tablet) 400 mg PO BID [facility] Last Admin: 08/27/21 08:53 Dose: 400 mg Documented by: Metformin HCl (Metformin Hcl Er 500 Mg Tab.Er.24h) 500 mg PO DAILY [facility] Last Admin: 08/27/21 08:52 Dose: 500 mg Documented by: Metoprolol Tartrate (Metoprolol Tartrate 25 Mg Tablet) 25 mg PO DAILY [facility]; Protocol Last Admin: 08/27/21 08:53 Dose: 25 mg Documented by: Ondansetron HCl (Ondansetron Odt 8 Mg Tab.Rapdis) 8 mg TRANSLINGU Q8H [facility] Last Admin: 08/27/21 11:13 Dose: 8 mg Documented by: Risperidone (Risperidone 0.25 Mg Tablet) 0.25 mg PO Q4H PRN PRN Reason: Anxiety Risperidone (Risperidone 1 Mg Tablet) 1 mg PO BID [facility] Sertraline HCl (Sertraline Hcl 50 Mg Tablet) 50 mg PO DAILY [facility] Last Admin: 08/27/21 08:53 Dose: 50 mg Documented by: Trazodone HCl (Trazodone Hcl 25 Mg Halftab) 25 mg PO BEDTIME PRN PRN Reason: Insomnia Last Admin: 08/23/21 21:46 Dose: 25 mg Documented by: Allergies Allergies Allergy/AdvReac Type Severity Reaction Status Date / Time No Known Allergies Allergy Verified 08/20/21 17:22 Assessment & Plan Assessment & Plan (1) Delirium: Status: Acute Code(s): R41.0 - Disorientation, unspecified Assessment and Plan: the patient is an elderly female with a long history of depression for the last 6 years after the of her that has being psychotic, paranoid and disorganized in the last months. She was brought due to inappropriate sexual behavior, dizzy vision and altered mental status most likely due to UTI. Plan 1. Continue same medications. 2. increase risperidone up to 1.0 mg p.o. b.i.d. to target psychosis. 3. Atarax 25 QHS added 08/26 for sleep per pt request. (2) Psychosis: Status: Acute Code(s): F29 - Unspecified psychosis not due to a substance or known physiological condition (3) Diabetes: Status: Acute Code(s): E11.9 - Type 2 diabetes mellitus without complications (4) HTN (hypertension): Status: Acute Code(s): I10 - Essential (primary) hypertension I spent minutes with the patient and/or on the patient floor today, greater than?50% of which was spent counseling/coordinating care. Reason for contiued inpatient stay Substantial Risk for: inability to function, rapid decompensation and med/psych decompensation
[2021-08-27] MEDS: Acetaminophen 325 MG TABLET 650 MG PO (16:08)
[2021-08-27] MEDS: Atorvastatin Calcium 20 MG TABLET PO (20:14)
[2021-08-27] MEDS: risperiDONE 1 MG TABLET PO (20:15)
[2021-08-27] MEDS: hydrOXYzine HCL 25 MG TABLET PO (20:15)
[2021-08-27 20:25] VITALS: BP 147/64; PULSE 63; RESP 18; TEMP 36.4; O2SAT 98
[2021-08-28 07:10] VITALS: BP 140/61; PULSE 72; RESP 16; TEMP 36.3; O2SAT 97
[2021-08-28] MEDS: Cyanocobalamin (Vitamin B-12) 1,000 MCG TABLET 1000 MCG PO (08:49)
[2021-08-28] MEDS: Losartan Potassium 50 MG TABLET 100 MG PO (08:49)
[2021-08-28] MEDS: Magnesium Oxide 400 MG TABLET PO ×2 (08:49→21:00)
[2021-08-28] MEDS: risperiDONE 1 MG TABLET PO ×2 (08:49→21:00)
[2021-08-28] MEDS: metFORMIN HCl ER 500 MG TAB.ER.24H PO (08:50)
[2021-08-28] MEDS: Sertraline HCL 50 MG TABLET PO (08:50)
[2021-08-28] MEDS: Metoprolol Tartrate 25 MG TABLET PO (08:50)
[2021-08-28] MEDS: Ondansetron ODT 8 MG TAB.RAPDIS TRANSLINGU ×2 (08:50→21:00)
--- NOTE | 2021-08-28 15:51 | HO.PSYCHPN ---
Subjective Subjective Date of Service: 08/28/21 Reason For Visit: depessive Subjective Notes: Ibarra Warning and Conditional Voluntary Interim History: The nursing staff reported that the patient takes her meals mostly on her on room, she is confused at times. On interview the patient denies new symptoms she states that she is doing fine. Ibarra warning was provided. She had a [place] test today and she scored 12/30 Mental Status Exam Mental Status Exam Patient Appearance: Appropriate Patient Orientation: Person Level of Consciousness: Awake Patient Behavior: Guarded and Suspicious Mood Description: Labile Affect Description: Blunted Patient Cognition Impaired: Yes Ability to Follow Directions: Fair Speech Pattern: Clear Hallucinations: Auditory Delusions: Paranoid Ideation Thought Process: Distracted, Evasive and Confusion Thought Content: positive for [place] and positive for Poverty of Content Judgement: Poor Diagnostics Vital Signs (24Hr): Vital Signs - 24 hr 08/27/21 20:25 08/28/21 07:10 Temperature 97.6 F 97.4 F Pulse Rate 63 72 Respiratory Rate 18 16 Blood Pressure 147/64 H 140/61 H Pulse Oximetry 98 97 BMI result Body Mass Index 35.4 Labs Results: 08/22/21 06:59 08/22/21 06:59 Medications Medications Current Medications Acetaminophen (Acetaminophen 325 Mg Tablet) 650 mg PO Q6H PRN PRN Reason: Pain, Mild (Pain Scale 1-3) Last Admin: 08/27/21 16:08 Dose: 650 mg Documented by: Atorvastatin Calcium (Atorvastatin Calcium 20 Mg Tablet) 20 mg PO BEDTIME [facility] Last Admin: 08/27/21 20:14 Dose: 20 mg Documented by: Cyanocobalamin (Cyanocobalamin (Vitamin B-12) 1,000 Mcg Tablet) 1,000 mcg PO DAILY [facility] Last Admin: 08/28/21 08:49 Dose: 1,000 mcg Documented by: Hydroxyzine HCl (Hydroxyzine Hcl 25 Mg Tablet) 25 mg PO BEDTIME [facility] Last Admin: 08/27/21 20:15 Dose: 25 mg Documented by: Losartan Potassium (Losartan Potassium 50 Mg Tablet) 100 mg PO DAILY [facility]; Protocol Last Admin: 08/28/21 08:49 Dose: 100 mg Documented by: Magnesium Hydroxide (Milk Of Magnesia 30 Ml Oral.Susp) 30 ml PO BID PRN PRN Reason: Constipation Last Admin: 08/27/21 11:13 Dose: 30 ml Documented by: Magnesium Oxide (Magnesium Oxide 400 Mg Tablet) 400 mg PO BID [facility] Last Admin: 08/28/21 08:49 Dose: 400 mg Documented by: Metformin HCl (Metformin Hcl Er 500 Mg Tab.Er.24h) 500 mg PO DAILY [facility] Last Admin: 08/28/21 08:50 Dose: 500 mg Documented by: Metoprolol Tartrate (Metoprolol Tartrate 25 Mg Tablet) 25 mg PO DAILY [facility]; Protocol Last Admin: 08/28/21 08:50 Dose: 25 mg Documented by: Ondansetron HCl (Ondansetron Odt 8 Mg Tab.Rapdis) 8 mg TRANSLINGU Q8H [facility] Last Admin: 08/28/21 08:50 Dose: 8 mg Documented by: Risperidone (Risperidone 0.25 Mg Tablet) 0.25 mg PO Q4H PRN PRN Reason: Anxiety Risperidone (Risperidone 1 Mg Tablet) 1 mg PO BID [facility] Last Admin: 08/28/21 08:49 Dose: 1 mg Documented by: Sertraline HCl (Sertraline Hcl 50 Mg Tablet) 50 mg PO DAILY [facility] Last Admin: 08/28/21 08:50 Dose: 50 mg Documented by: Trazodone HCl (Trazodone Hcl 25 Mg Halftab) 25 mg PO BEDTIME PRN PRN Reason: Insomnia Last Admin: 08/23/21 21:46 Dose: 25 mg Documented by: Allergies Allergies Allergy/AdvReac Type Severity Reaction Status Date / Time No Known Allergies Allergy Verified 08/20/21 17:22 Assessment & Plan Assessment & Plan (1) Delirium: Status: Acute Code(s): R41.0 - Disorientation, unspecified Assessment and Plan: the patient is an elderly female with a long history of depression for the last 6 years after the of her that has being psychotic, paranoid and disorganized in the last months. She was brought due to inappropriate sexual behavior, dizzy vision and altered mental status most likely due to UTI. Plan 1. Continue same medications. 2. increase risperidone up to 1.0 mg p.o. b.i.d. to target psychosis. 3. Atarax 25 QHS added 08/26 for sleep per pt request. 4. Court hearing for section 7 and 8. (2) Psychosis: Status: Acute Code(s): F29 - Unspecified psychosis not due to a substance or known physiological condition (3) Diabetes: Status: Acute Code(s): E11.9 - Type 2 diabetes mellitus without complications (4) HTN (hypertension): Status: Acute Code(s): I10 - Essential (primary) hypertension I spent minutes with the patient and/or on the patient floor today, greater than?50% of which was spent counseling/coordinating care. Reason for contiued inpatient stay Substantial Risk for: inability to function, rapid decompensation and med/psych decompensation
[2021-08-28 21:00] VITALS: BP 133/60; PULSE 57; RESP 18; TEMP 36.2; O2SAT 98
[2021-08-28] MEDS: hydrOXYzine HCL 25 MG TABLET PO (21:00)
[2021-08-28] MEDS: Acetaminophen 325 MG TABLET 650 MG PO (21:06)
[2021-08-29 06:00] VITALS: BP 125/71; PULSE 76; TEMP 36.3; O2SAT 99
[2021-08-29] MEDS: metFORMIN HCl ER 500 MG TAB.ER.24H PO (08:30)
[2021-08-29] MEDS: risperiDONE 1 MG TABLET PO ×2 (08:31→21:28)
[2021-08-29] MEDS: Cyanocobalamin (Vitamin B-12) 1,000 MCG TABLET 1000 MCG PO (08:31)
[2021-08-29] MEDS: Losartan Potassium 50 MG TABLET 100 MG PO (08:31)
[2021-08-29] MEDS: Metoprolol Tartrate 25 MG TABLET PO (08:31)
[2021-08-29] MEDS: Sertraline HCL 50 MG TABLET PO (08:31)
[2021-08-29] MEDS: Magnesium Oxide 400 MG TABLET PO ×2 (08:31→21:27)
[2021-08-29 09:38] LABS: Creatinine Clr Calc Pharmacy 42.2; Estimated Glomerular Filt Rate 43
[2021-08-29 11:52] VITALS: BMI 35.9
--- NOTE | 2021-08-29 15:16 | HO.PSYCHPN ---
Subjective Subjective Date of Service: 08/29/21 Reason For Visit: depessive Subjective Notes: Section 12B Interim History: The nursing staff reported the patient remains elusive is stating that she does not have diabetes that she has been cured. The social problems specialist reported that in the community she called 12 times to the police reporting that her [id number] was trying to attack her and other paranoid delusions. On interview, the patient denies new symptoms, she denies over-sedation with Risperdal 1 mg p.o. b.i.d., her affect looks less irritable but still paranoid against her daughter in law. Mental Status Exam Mental Status Exam Patient Appearance: Well Grooomed Patient Orientation: Person Level of Consciousness: Awake Patient Behavior: Guarded Mood Description: Constricted Affect Description: Withdrawn Patient Cognition Impaired: Yes Ability to Follow Directions: Good Speech Pattern: Clear Hallucinations: None Delusions: Paranoid Ideation Thought Process: Illogical, Evasive and Slowed Thinking Thought Content: positive for [place] and positive for Poverty of Content Judgement: Fair Diagnostics Vital Signs (24Hr): Vital Signs - 24 hr 08/28/21 21:00 08/29/21 06:00 Temperature 97.1 F 97.4 F Pulse Rate 57 76 Respiratory Rate 18 Blood Pressure 133/60 125/71 Pulse Oximetry 98 99 BMI result Body Mass Index 35.9 Labs Results: 08/22/21 06:59 08/29/21 09:17 Labs: Laboratory Results - last 48 hr 08/29/21 09:17 Creatinine 1.23 Estim Creat Clear Calc 42.2 Estimated GFR 43 Medications Medications Current Medications Acetaminophen (Acetaminophen 325 Mg Tablet) 650 mg PO Q6H PRN PRN Reason: Pain, Mild (Pain Scale 1-3) Last Admin: 08/28/21 21:06 Dose: 650 mg Documented by: Atorvastatin Calcium (Atorvastatin Calcium 20 Mg Tablet) 20 mg PO BEDTIME [facility] Last Admin: 08/28/21 20:55 Dose: Not Given Documented by: Cyanocobalamin (Cyanocobalamin (Vitamin B-12) 1,000 Mcg Tablet) 1,000 mcg PO DAILY [facility] Last Admin: 08/29/21 08:31 Dose: 1,000 mcg Documented by: Hydroxyzine HCl (Hydroxyzine Hcl 25 Mg Tablet) 25 mg PO BEDTIME [facility] Last Admin: 08/28/21 21:00 Dose: 25 mg Documented by: Losartan Potassium (Losartan Potassium 50 Mg Tablet) 100 mg PO DAILY [facility]; Protocol Last Admin: 08/29/21 08:31 Dose: 100 mg Documented by: Magnesium Hydroxide (Milk Of Magnesia 30 Ml Oral.Susp) 30 ml PO BID PRN PRN Reason: Constipation Last Admin: 08/27/21 11:13 Dose: 30 ml Documented by: Magnesium Oxide (Magnesium Oxide 400 Mg Tablet) 400 mg PO BID [facility] Last Admin: 08/29/21 08:31 Dose: 400 mg Documented by: Metformin HCl (Metformin Hcl Er 500 Mg Tab.Er.24h) 500 mg PO DAILY [facility] Last Admin: 08/29/21 08:30 Dose: 500 mg Documented by: Metoprolol Tartrate (Metoprolol Tartrate 25 Mg Tablet) 25 mg PO DAILY [facility]; Protocol Last Admin: 08/29/21 08:31 Dose: 25 mg Documented by: Ondansetron HCl (Ondansetron Odt 8 Mg Tab.Rapdis) 8 mg TRANSLINGU Q8H [facility] Last Admin: 08/29/21 12:22 Dose: Not Given Documented by: Risperidone (Risperidone 0.25 Mg Tablet) 0.25 mg PO Q4H PRN PRN Reason: Anxiety Risperidone (Risperidone 1 Mg Tablet) 1 mg PO BID [facility] Last Admin: 08/29/21 08:31 Dose: 1 mg Documented by: Sertraline HCl (Sertraline Hcl 50 Mg Tablet) 50 mg PO DAILY [facility] Last Admin: 08/29/21 08:31 Dose: 50 mg Documented by: Trazodone HCl (Trazodone Hcl 25 Mg Halftab) 25 mg PO BEDTIME PRN PRN Reason: Insomnia Last Admin: 08/23/21 21:46 Dose: 25 mg Documented by: Allergies Allergies Allergy/AdvReac Type Severity Reaction Status Date / Time No Known Allergies Allergy Verified 08/20/21 17:22 Assessment & Plan Assessment & Plan (1) Delirium: Status: Acute Code(s): R41.0 - Disorientation, unspecified Assessment and Plan: the patient is an elderly female with a long history of depression for the last 6 years after the of her that has being psychotic, paranoid and disorganized in the last months. She was brought due to inappropriate sexual behavior, dizzy vision and altered mental status most likely due to UTI. Plan 1. Continue same medications. 2. increase risperidone up to 1.0 mg p.o. b.i.d. to target psychosis. 3. Atarax 25 QHS added 08/26 for sleep per pt request. 4. 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 Reason for contiued inpatient stay Substantial Risk for: inability to function, rapid decompensation and med/psych decompensation
[2021-08-29 20:04] VITALS: BP 142/65; PULSE 71; RESP 17; TEMP 36.1; O2SAT 98
[2021-08-29] MEDS: hydrOXYzine HCL 25 MG TABLET PO (21:27)
[2021-08-29] MEDS: Ondansetron ODT 8 MG TAB.RAPDIS TRANSLINGU (21:27)
[2021-08-30 06:00] VITALS: BP 101/58; PULSE 62; RESP 16; TEMP 36.4; O2SAT 97
[2021-08-30] MEDS: metFORMIN HCl ER 500 MG TAB.ER.24H PO (08:18)
[2021-08-30] MEDS: Metoprolol Tartrate 25 MG TABLET PO (08:18)
[2021-08-30] MEDS: Magnesium Oxide 400 MG TABLET PO ×2 (08:18→20:37)
[2021-08-30] MEDS: Losartan Potassium 50 MG TABLET 100 MG PO (08:18)
[2021-08-30] MEDS: risperiDONE 1 MG TABLET PO (08:18)
[2021-08-30] MEDS: Sertraline HCL 50 MG TABLET PO (08:18)
[2021-08-30] MEDS: Cyanocobalamin (Vitamin B-12) 1,000 MCG TABLET 1000 MCG PO (08:18)
[2021-08-30] MEDS: Ondansetron ODT 8 MG TAB.RAPDIS TRANSLINGU ×2 (13:32→18:13)
--- NOTE | 2021-08-30 16:33 | P.PNPSI_ITS ---
Subjective Subjective Date of Service: 08/30/21 Reason For Visit: depessive Subjective Notes: Section 12B Interim History: The nursing staff reports the patient states in her room most of the time, internally preoccupied. She is not overtly psychotic but when she is questioned about her [id number] she becomes slightly agitated. On interview the patient denies new symptoms she denies side effects with the current medication. At this moment she is on Risperdal 3 mg a day without side effects and better behavioral control Mental Status Exam Mental Status Exam Patient Appearance: Well Grooomed Patient Orientation: Person and Situation Level of Consciousness: Awake Patient Behavior: Guarded Mood Description: Depressed Affect Description: Constricted Patient Cognition Impaired: Yes Ability to Follow Directions: Good Speech Pattern: Clear Hallucinations: None Delusions: Paranoid Ideation Thought Process: Slowed Thinking Thought Content: positive for Circumstantial and positive for Poverty of Content Judgement: Poor Diagnostics Vital Signs (24Hr): Vital Signs - 24 hr 08/29/21 20:04 08/30/21 06:00 Temperature 97 F 97.5 F Pulse Rate 71 62 Respiratory Rate 17 16 Blood Pressure 142/65 H 101/58 L Pulse Oximetry 98 97 BMI result Body Mass Index 35.9 Labs Results: 08/22/21 06:59 08/29/21 09:17 Labs: Laboratory Results - last 48 hr 08/29/21 09:17 Creatinine 1.23 Estim Creat Clear Calc 42.2 Estimated GFR 43 Medications Medications Current Medications Acetaminophen (Acetaminophen 325 Mg Tablet) 650 mg PO Q6H PRN PRN Reason: Pain, Mild (Pain Scale 1-3) Last Admin: 08/28/21 21:06 Dose: 650 mg Documented by: Atorvastatin Calcium (Atorvastatin Calcium 20 Mg Tablet) 20 mg PO BEDTIME [facility] Last Admin: 08/29/21 21:28 Dose: Not Given Documented by: Cyanocobalamin (Cyanocobalamin (Vitamin B-12) 1,000 Mcg Tablet) 1,000 mcg PO DAILY [facility] Last Admin: 08/30/21 08:18 Dose: 1,000 mcg Documented by: Hydroxyzine HCl (Hydroxyzine Hcl 25 Mg Tablet) 25 mg PO BEDTIME [facility] Last Admin: 08/29/21 21:27 Dose: 25 mg Documented by: Losartan Potassium (Losartan Potassium 50 Mg Tablet) 100 mg PO DAILY [facility]; Protocol Last Admin: 08/30/21 08:18 Dose: 100 mg Documented by: Magnesium Hydroxide (Milk Of Magnesia 30 Ml Oral.Susp) 30 ml PO BID PRN PRN Reason: Constipation Last Admin: 08/27/21 11:13 Dose: 30 ml Documented by: Magnesium Oxide (Magnesium Oxide 400 Mg Tablet) 400 mg PO BID [facility] Last Admin: 08/30/21 08:18 Dose: 400 mg Documented by: Metformin HCl (Metformin Hcl Er 500 Mg Tab.Er.24h) 500 mg PO DAILY [facility] Last Admin: 08/30/21 08:18 Dose: 500 mg Documented by: Metoprolol Tartrate (Metoprolol Tartrate 25 Mg Tablet) 25 mg PO DAILY [facility]; Protocol Last Admin: 08/30/21 08:18 Dose: 25 mg Documented by: Ondansetron HCl (Ondansetron Odt 8 Mg Tab.Rapdis) 8 mg TRANSLINGU Q8H [facility] Last Admin: 08/30/21 13:32 Dose: 8 mg Documented by: Risperidone (Risperidone 0.25 Mg Tablet) 0.25 mg PO Q4H PRN PRN Reason: Anxiety Risperidone (Risperidone 1 Mg Tablet) 1 mg PO DAILY [facility] Risperidone (Risperidone 2 Mg Tablet) 2 mg PO BEDTIME [facility] Sertraline HCl (Sertraline Hcl 50 Mg Tablet) 50 mg PO DAILY [facility] Last Admin: 08/30/21 08:18 Dose: 50 mg Documented by: Trazodone HCl (Trazodone Hcl 25 Mg Halftab) 25 mg PO BEDTIME PRN PRN Reason: Insomnia Last Admin: 08/23/21 21:46 Dose: 25 mg Documented by: Allergies Allergies Allergy/AdvReac Type Severity Reaction Status Date / Time No Known Allergies Allergy Verified 08/20/21 17:22 Assessment & Plan Assessment & Plan (1) Delirium: Status: Acute Code(s): R41.0 - Disorientation, unspecified Assessment and Plan: the patient is an elderly female with a long history of depression for the last 6 years after the of her that has being psychotic, paranoid and disorganized in the last months. She was brought due to inappropriate sexual behavior, dizzy vision and altered mental status most likely due to UTI. Plan 1. Continue same medications. 2. increase risperidone up to 1.0 mg p.o. qhs and 2 mg po qhs. to target psychosis. 3. Atarax 25 QHS added 08/26 for sleep per pt request. 4. 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 Reason for contiued inpatient stay Substantial Risk for: inability to function, rapid decompensation and med/psych decompensation
[2021-08-30 18:00] VITALS: BP 132/57; PULSE 66; RESP 18; TEMP 35.9; O2SAT 100
[2021-08-30] MEDS: hydrOXYzine HCL 25 MG TABLET PO (20:37)
[2021-08-30] MEDS: risperiDONE 2 MG TABLET PO (20:42)
[2021-08-31 08:00] VITALS: BP 114/67; PULSE 87; RESP 16; TEMP 36.2; O2SAT 95
--- NOTE | 2021-08-31 09:22 | P.PNPSI_ITS ---
Subjective Subjective Date of Service: 08/31/21 Reason For Visit: paranoid agitation Subjective Notes: Section 7 Interim History: Patient has generally been her room she is eating and drinking taking care of herself. She is able to relate a history of selling her home in [place] coming up to live with her son and that she has her own apartment remains preoccupied with her daughter in law when asked about situation Mental Status Exam Mental Status Exam Patient Appearance: Well Grooomed Patient Orientation: Person, Place and Situation Level of Consciousness: Awake Patient Behavior: Guarded Mood Description: Constricted and Depressed Affect Description: Constricted Patient Cognition Impaired: Yes Ability to Follow Directions: Good Speech Pattern: Clear Hallucinations: None Delusions: Paranoid Ideation Thought Process: Goal Oriented Thought Content: positive for Circumstantial and positive for Poverty of Content Judgement: Fair Diagnostics Vital Signs (24Hr): Vital Signs - 24 hr 08/30/21 18:00 Temperature 96.7 F L Pulse Rate 66 Respiratory Rate 18 Blood Pressure 132/57 L Pulse Oximetry 100 BMI result Body Mass Index 35.9 Labs Results: 08/22/21 06:59 08/29/21 09:17 Labs: Laboratory Results - last 48 hr 08/29/21 09:17 Creatinine 1.23 Estim Creat Clear Calc 42.2 Estimated GFR 43 Medications Medications Current Medications Acetaminophen (Acetaminophen 325 Mg Tablet) 650 mg PO Q6H PRN PRN Reason: Pain, Mild (Pain Scale 1-3) Last Admin: 08/28/21 21:06 Dose: 650 mg Documented by: Atorvastatin Calcium (Atorvastatin Calcium 20 Mg Tablet) 20 mg PO BEDTIME [facility] Last Admin: 08/30/21 20:38 Dose: Not Given Documented by: Cyanocobalamin (Cyanocobalamin (Vitamin B-12) 1,000 Mcg Tablet) 1,000 mcg PO DAILY [facility] Last Admin: 08/30/21 08:18 Dose: 1,000 mcg Documented by: Hydroxyzine HCl (Hydroxyzine Hcl 25 Mg Tablet) 25 mg PO BEDTIME [facility] Last Admin: 08/30/21 20:37 Dose: 25 mg Documented by: Losartan Potassium (Losartan Potassium 50 Mg Tablet) 100 mg PO DAILY [facility]; Protocol Last Admin: 08/30/21 08:18 Dose: 100 mg Documented by: Magnesium Hydroxide (Milk Of Magnesia 30 Ml Oral.Susp) 30 ml PO BID PRN PRN Reason: Constipation Last Admin: 08/27/21 11:13 Dose: 30 ml Documented by: Magnesium Oxide (Magnesium Oxide 400 Mg Tablet) 400 mg PO BID [facility] Last Admin: 08/30/21 20:37 Dose: 400 mg Documented by: Metformin HCl (Metformin Hcl Er 500 Mg Tab.Er.24h) 500 mg PO DAILY [facility] Last Admin: 08/30/21 08:18 Dose: 500 mg Documented by: Metoprolol Tartrate (Metoprolol Tartrate 25 Mg Tablet) 25 mg PO DAILY [facility]; Protocol Last Admin: 08/30/21 08:18 Dose: 25 mg Documented by: Ondansetron HCl (Ondansetron Odt 8 Mg Tab.Rapdis) 8 mg TRANSLINGU Q8H [facility] Last Admin: 08/31/21 03:35 Dose: Not Given Documented by: Risperidone (Risperidone 0.25 Mg Tablet) 0.25 mg PO Q4H PRN PRN Reason: Anxiety Risperidone (Risperidone 1 Mg Tablet) 1 mg PO DAILY [facility] Risperidone (Risperidone 2 Mg Tablet) 2 mg PO BEDTIME [facility] Last Admin: 08/30/21 20:42 Dose: 2 mg Documented by: Sertraline HCl (Sertraline Hcl 50 Mg Tablet) 50 mg PO DAILY [facility] Last Admin: 08/30/21 08:18 Dose: 50 mg Documented by: Trazodone HCl (Trazodone Hcl 25 Mg Halftab) 25 mg PO BEDTIME PRN PRN Reason: Insomnia Last Admin: 08/23/21 21:46 Dose: 25 mg Documented by: Allergies Allergies Allergy/AdvReac Type Severity Reaction Status Date / Time No Known Allergies Allergy Verified 08/20/21 17:22 Assessment & Plan Assessment & Plan (1) Delirium: Status: Acute Code(s): R41.0 - Disorientation, unspecified Assessment and Plan: the patient is an elderly female with a long history of depression fo r the last 6 years after the of her that has being psychotic, paranoid and disorganized in the last months. She was brought due to inappropriate sexual behavior, dizzy vision and altered mental status most likely due to UTI. Plan 1. Continue same medications. 2. increase risperidone up to 1.0 mg p.o. qhs and 2 mg po qhs. to target psychosis. 3. Atarax 25 QHS added 08/26 for sleep per pt request. 4. Court hearing for section 7 and 8 was delayed until next week 08/31/2021 Patient was cooperative and verbal continue risperidone Continue plan of care (2) Psychosis: Status: Acute Code(s): F29 - Unspecified psychosis not due to a substance or known physiological condition (3) Diabetes: Status: Acute Code(s): E11.9 - Type 2 diabetes mellitus without complications (4) HTN (hypertension): Status: Acute Code(s): I10 - Essential (primary) hypertension I spent minutes with the patient and/or on the patient floor today, greater than?50% of which was spent counseling/coordinating care. Reason for contiued inpatient stay Substantial Risk for: harm to others, inability to function and rapid decompensation
[2021-08-31] MEDS: Sertraline HCL 50 MG TABLET PO (09:45)
[2021-08-31] MEDS: risperiDONE 1 MG TABLET PO (09:45)
[2021-08-31] MEDS: Magnesium Oxide 400 MG TABLET PO ×2 (09:45→20:23)
[2021-08-31] MEDS: Metoprolol Tartrate 25 MG TABLET PO (09:45)
[2021-08-31] MEDS: Cyanocobalamin (Vitamin B-12) 1,000 MCG TABLET 1000 MCG PO (09:45)
[2021-08-31] MEDS: metFORMIN HCl ER 500 MG TAB.ER.24H PO (09:45)
[2021-08-31] MEDS: Losartan Potassium 50 MG TABLET 100 MG PO (09:45)
[2021-08-31 18:00] VITALS: BP 126/60; PULSE 82; RESP 18; TEMP 36.1; O2SAT 99
[2021-08-31] MEDS: risperiDONE 2 MG TABLET PO (20:23)
[2021-08-31] MEDS: hydrOXYzine HCL 25 MG TABLET PO (20:23)
[2021-09-01 08:15] VITALS: BP 133/61; PULSE 86; TEMP 36.2; O2SAT 97
[2021-09-01] MEDS: Sertraline HCL 50 MG TABLET PO (09:20)
[2021-09-01] MEDS: Losartan Potassium 50 MG TABLET 100 MG PO (09:20)
[2021-09-01] MEDS: metFORMIN HCl ER 500 MG TAB.ER.24H PO (09:20)
[2021-09-01] MEDS: risperiDONE 1 MG TABLET PO (09:20)
[2021-09-01] MEDS: Cyanocobalamin (Vitamin B-12) 1,000 MCG TABLET 1000 MCG PO (09:20)
[2021-09-01] MEDS: Metoprolol Tartrate 25 MG TABLET PO (09:20)
[2021-09-01] MEDS: Magnesium Oxide 400 MG TABLET PO ×2 (09:21→21:23)
[2021-09-01] MEDS: Ondansetron ODT 8 MG TAB.RAPDIS TRANSLINGU ×2 (09:21→17:31)
--- NOTE | 2021-09-01 20:08 | HO.PSYCHPN ---
Subjective Subjective Date of Service: 09/01/21 Reason For Visit: paranoid agitation Subjective Notes: Section 7 Healthcare Proxy: No Interim History: Patient is isolative psychotic withdrawn spending much of her time in her room. Not aggressive she is on Risperdal Attending Groups: No Review of Systems Medical Review of Systems: unchanged Mental Status Exam Mental Status Exam Patient Appearance: Well Grooomed Patient Orientation: Person, Place and Situation Level of Consciousness: Awake Patient Behavior: Guarded Mood Description: Constricted, Depressed and Flat Affect Description: Constricted and Apprehensive Patient Cognition Impaired: Yes Ability to Follow Directions: Good Speech Pattern: Clear and Soft-Spoken Hallucinations: None Delusions: Paranoid Ideation Thought Process: Goal Oriented Thought Content: positive for Circumstantial and positive for Poverty of Content Judgement: Fair Diagnostics Vital Signs (24Hr): Vital Signs - 24 hr 09/01/21 08:15 Temperature 97.1 F Pulse Rate 86 Blood Pressure 133/61 Pulse Oximetry 97 BMI result Body Mass Index 35.9 Labs Results: 08/22/21 06:59 08/29/21 09:17 Medications Medications Current Medications Acetaminophen (Acetaminophen 325 Mg Tablet) 650 mg PO Q6H PRN PRN Reason: Pain, Mild (Pain Scale 1-3) Last Admin: 08/28/21 21:06 Dose: 650 mg Documented by: Atorvastatin Calcium (Atorvastatin Calcium 20 Mg Tablet) 20 mg PO BEDTIME [facility] Last Admin: 08/31/21 20:48 Dose: Not Given Documented by: Cyanocobalamin (Cyanocobalamin (Vitamin B-12) 1,000 Mcg Tablet) 1,000 mcg PO DAILY [facility] Last Admin: 09/01/21 09:20 Dose: 1,000 mcg Documented by: Hydroxyzine HCl (Hydroxyzine Hcl 25 Mg Tablet) 25 mg PO BEDTIME [facility] Last Admin: 08/31/21 20:23 Dose: 25 mg Documented by: Losartan Potassium (Losartan Potassium 50 Mg Tablet) 100 mg PO DAILY [facility]; Protocol Last Admin: 09/01/21 09:20 Dose: 100 mg Documented by: Magnesium Hydroxide (Milk Of Magnesia 30 Ml Oral.Susp) 30 ml PO BID PRN PRN Reason: Constipation Last Admin: 08/27/21 11:13 Dose: 30 ml Documented by: Magnesium Oxide (Magnesium Oxide 400 Mg Tablet) 400 mg PO BID [facility] Last Admin: 09/01/21 09:21 Dose: 400 mg Documented by: Metformin HCl (Metformin Hcl Er 500 Mg Tab.Er.24h) 500 mg PO DAILY [facility] Last Admin: 09/01/21 09:20 Dose: 500 mg Documented by: Metoprolol Tartrate (Metoprolol Tartrate 25 Mg Tablet) 25 mg PO DAILY [facility]; Protocol Last Admin: 09/01/21 09:20 Dose: 25 mg Documented by: Ondansetron HCl (Ondansetron Odt 8 Mg Tab.Rapdis) 8 mg TRANSLINGU Q8H [facility] Last Admin: 09/01/21 17:31 Dose: 8 mg Documented by: Risperidone (Risperidone 0.25 Mg Tablet) 0.25 mg PO Q4H PRN PRN Reason: Anxiety Risperidone (Risperidone 1 Mg Tablet) 1 mg PO DAILY [facility] Last Admin: 09/01/21 09:20 Dose: 1 mg Documented by: Risperidone (Risperidone 2 Mg Tablet) 2 mg PO BEDTIME [facility] Last Admin: 08/31/21 20:23 Dose: 2 mg Documented by: Sertraline HCl (Sertraline Hcl 50 Mg Tablet) 50 mg PO DAILY [facility] Last Admin: 09/01/21 09:20 Dose: 50 mg Documented by: Trazodone HCl (Trazodone Hcl 25 Mg Halftab) 25 mg PO BEDTIME PRN PRN Reason: Insomnia Last Admin: 08/23/21 21:46 Dose: 25 mg Documented by: Allergies Allergies Allergy/AdvReac Type Severity Reaction Status Date / Time No Known Allergies Allergy Verified 08/20/21 17:22 Assessment & Plan Assessment & Plan (1) Delirium: Status: Acute Code(s): R41.0 - Disorientation, unspecified Assessment and Plan: the patient is an elderly female with a long history of depression for the last 6 years after the of her that has being psychotic, paranoid and disorganized in the last months. She was brought due to inappropriate sexual behavior, dizzy vision and altered mental status most likely due to UTI. Plan 1. Continue same medications. 2. increase risperidone up to 1.0 mg p.o. qhs and 2 mg po qhs. to target psychosis. 3. Atarax 25 QHS added 08/26 for sleep per pt request. 4. Court hearing for section 7 and 8 was delayed until next week 08/31/2021 Patient was cooperative and verbal continue risperidone Continue plan of care 09/01/2021 Patient isolative generally to her room continue Risperdal encourage more out of bed (2) Psychosis: Status: Acute Code(s): F29 - Unspecified psychosis not due to a substance or known physiological condition (3) Diabetes: Status: Acute Code(s): E11.9 - Type 2 diabetes mellitus without complications (4) HTN (hypertension): Status: Acute Code(s): I10 - Essential (primary) hypertension I spent minutes with the patient and/or on the patient floor today, greater than?50% of which was spent counseling/coordinating care. Reason for contiued inpatient stay Substantial Risk for: harm to self and rapid decompensation
[2021-09-01] MEDS: risperiDONE 2 MG TABLET PO (21:23)
[2021-09-01] MEDS: hydrOXYzine HCL 25 MG TABLET PO (21:23)
[2021-09-01] MEDS: Acetaminophen 325 MG TABLET 650 MG PO (21:23)
[2021-09-01 21:25] VITALS: BP 119/58; PULSE 66; RESP 18; TEMP 36.4; O2SAT 95
[2021-09-02 08:10] VITALS: BP 119/59; PULSE 71; RESP 18; TEMP 36.4; O2SAT 96
[2021-09-02] MEDS: Metoprolol Tartrate 25 MG TABLET PO (09:45)
[2021-09-02] MEDS: Ondansetron ODT 8 MG TAB.RAPDIS TRANSLINGU (09:45)
[2021-09-02] MEDS: Cyanocobalamin (Vitamin B-12) 1,000 MCG TABLET 1000 MCG PO (09:45)
[2021-09-02] MEDS: Sertraline HCL 50 MG TABLET PO (09:45)
[2021-09-02] MEDS: risperiDONE 1 MG TABLET PO (09:45)
[2021-09-02] MEDS: Magnesium Oxide 400 MG TABLET PO ×2 (09:45→20:38)
[2021-09-02] MEDS: Losartan Potassium 50 MG TABLET 100 MG PO (09:45)
[2021-09-02] MEDS: metFORMIN HCl ER 500 MG TAB.ER.24H PO (09:45)
--- NOTE | 2021-09-02 13:19 | HO.PSYCHPN ---
Subjective Subjective Date of Service: 09/02/21 Reason For Visit: paranoid agitation Subjective Notes: Section 12B Interim History: The nursing staff reported that the patient remains seclusive in her room, she is isolated and she has not voiced delusions but up on questioning she is still delusional. On interview, the patient denies new symptoms she states that she does not have side effects with the current medications. Mental Status Exam Mental Status Exam Patient Appearance: Well Grooomed Patient Orientation: Person and Situation Level of Consciousness: Awake Patient Behavior: Guarded and Passive Mood Description: Constricted Affect Description: Constricted Patient Cognition Impaired: Yes Ability to Follow Directions: Good Speech Pattern: Clear Hallucinations: None Delusions: Not Present Thought Process: Linear Thought Content: positive for Intact Judgement: Fair Diagnostics Vital Signs (24Hr): Vital Signs - 24 hr 09/01/21 21:25 09/02/21 08:10 Temperature 97.6 F 97.5 F Pulse Rate 66 71 Respiratory Rate 18 18 Blood Pressure 119/58 L 119/59 L Pulse Oximetry 95 96 BMI result Body Mass Index 35.9 Labs Results: 08/22/21 06:59 08/29/21 09:17 Medications Medications Current Medications Acetaminophen (Acetaminophen 325 Mg Tablet) 650 mg PO Q6H PRN PRN Reason: Pain, Mild (Pain Scale 1-3) Last Admin: 09/01/21 21:23 Dose: 650 mg Documented by: Atorvastatin Calcium (Atorvastatin Calcium 20 Mg Tablet) 20 mg PO BEDTIME [facility] Last Admin: 09/01/21 21:25 Dose: Not Given Documented by: Cyanocobalamin (Cyanocobalamin (Vitamin B-12) 1,000 Mcg Tablet) 1,000 mcg PO DAILY [facility] Last Admin: 09/02/21 09:45 Dose: 1,000 mcg Documented by: Hydroxyzine HCl (Hydroxyzine Hcl 25 Mg Tablet) 25 mg PO BEDTIME [facility] Last Admin: 09/01/21 21:23 Dose: 25 mg Documented by: Losartan Potassium (Losartan Potassium 50 Mg Tablet) 100 mg PO DAILY [facility]; Protocol Last Admin: 09/02/21 09:45 Dose: 100 mg Documented by: Magnesium Hydroxide (Milk Of Magnesia 30 Ml Oral.Susp) 30 ml PO BID PRN PRN Reason: Constipation Last Admin: 08/27/21 11:13 Dose: 30 ml Documented by: Magnesium Oxide (Magnesium Oxide 400 Mg Tablet) 400 mg PO BID [facility] Last Admin: 09/02/21 09:45 Dose: 400 mg Documented by: Metformin HCl (Metformin Hcl Er 500 Mg Tab.Er.24h) 500 mg PO DAILY [facility] Last Admin: 09/02/21 09:45 Dose: 500 mg Documented by: Metoprolol Tartrate (Metoprolol Tartrate 25 Mg Tablet) 25 mg PO DAILY [facility]; Protocol Last Admin: 09/02/21 09:45 Dose: 25 mg Documented by: Ondansetron HCl (Ondansetron Odt 8 Mg Tab.Rapdis) 8 mg TRANSLINGU Q8H [facility] Last Admin: 09/02/21 09:45 Dose: 8 mg Documented by: Risperidone (Risperidone 0.25 Mg Tablet) 0.25 mg PO Q4H PRN PRN Reason: Anxiety Risperidone (Risperidone 1 Mg Tablet) 1 mg PO DAILY [facility] Last Admin: 09/02/21 09:45 Dose: 1 mg Documented by: Risperidone (Risperidone 2 Mg Tablet) 2 mg PO BEDTIME [facility] Last Admin: 09/01/21 21:23 Dose: 2 mg Documented by: Sertraline HCl (Sertraline Hcl 50 Mg Tablet) 50 mg PO DAILY [facility] Last Admin: 09/02/21 09:45 Dose: 50 mg Documented by: Trazodone HCl (Trazodone Hcl 25 Mg Halftab) 25 mg PO BEDTIME PRN PRN Reason: Insomnia Last Admin: 08/23/21 21:46 Dose: 25 mg Documented by: Allergies Allergies Allergy/AdvReac Type Severity Reaction Status Date / Time No Known Allergies Allergy Verified 08/20/21 17:22 Assessment & Plan Assessment & Plan (1) Delirium: Status: Acute Code(s): R41.0 - Disorientation, unspecified Assessment and Plan: the patient is an elderly female with a long history of depression for the last 6 years after the of her that has being psychotic, paranoid and disorganized in the last months. She was brought due to inappropriate sexual behavior, dizzy vision and altered mental status most likely due to UTI. Plan 1. Continue same medications. 2. increase risperidone up to 1.0 mg p.o. qhs and 2 mg po qhs. to target psychosis. 3. Atarax 25 QHS added 08/26 for sleep per pt request. 4. Court hearing for section 7 and 8 was delayed until next week 5. Family meeting today in the afternoon over the phone (2) Psychosis: Status: Acute Code(s): F29 - Unspecified psychosis not due to a substance or known physiological condition (3) Diabetes: Status: Acute Code(s): E11.9 - Type 2 diabetes mellitus without complications (4) HTN (hypertension): Status: Acute Code(s): I10 - Essential (primary) hypertension I spent minutes with the patient and/or on the patient floor today, greater than?50% of which was spent counseling/coordinating care. Reason for contiued inpatient stay Substantial Risk for: inability to function, rapid decompensation and med/psych decompensation
[2021-09-02 20:15] VITALS: BP 107/55; PULSE 62; RESP 18; TEMP 36.2; O2SAT 98
[2021-09-02] MEDS: Acetaminophen 325 MG TABLET 650 MG PO (20:38)
[2021-09-02] MEDS: risperiDONE 2 MG TABLET PO (20:38)
[2021-09-02] MEDS: hydrOXYzine HCL 25 MG TABLET PO (20:38)
[2021-09-03 07:25] VITALS: BP 129/63; PULSE 62; RESP 17; TEMP 37.4; O2SAT 97
[2021-09-03] MEDS: Metoprolol Tartrate 25 MG TABLET PO (09:00)
[2021-09-03] MEDS: risperiDONE 1 MG TABLET PO (09:00)
[2021-09-03] MEDS: Sertraline HCL 50 MG TABLET PO (09:01)
[2021-09-03] MEDS: Magnesium Oxide 400 MG TABLET PO ×2 (09:01→20:05)
[2021-09-03] MEDS: Ondansetron ODT 8 MG TAB.RAPDIS TRANSLINGU (09:01)
[2021-09-03] MEDS: metFORMIN HCl ER 500 MG TAB.ER.24H PO (09:01)
[2021-09-03] MEDS: Cyanocobalamin (Vitamin B-12) 1,000 MCG TABLET 1000 MCG PO (09:01)
[2021-09-03] MEDS: Losartan Potassium 50 MG TABLET 100 MG PO (09:01)
--- NOTE | 2021-09-03 11:59 | P.PNPSI_ITS ---
Subjective Subjective Date of Service: 09/03/21 Reason For Visit: paranoid agitation Subjective Notes: Section 12B Interim History: The nursing staff reported the patient has been on her room most of the time, seclusive and internally preoccupied. Her [place] test is 12/30 and her ACS shows that she needs 24 hour supervision. Yesterday we had a family meeting and we shown the results but the family wants her back. She will be discharged before the court hearing. On interview, the patient denies active auditory hallucinations and new symptoms. Mental Status Exam Mental Status Exam Patient Appearance: Appropriate Patient Orientation: Person and Situation Level of Consciousness: Awake Patient Behavior: Appropriate Mood Description: Calm Affect Description: Constricted Patient Cognition Impaired: Yes Ability to Follow Directions: Good Speech Pattern: Clear Hallucinations: None Delusions: Not Present Thought Content: positive for Intact Judgement: Fair Diagnostics Vital Signs (24Hr): Vital Signs - 24 hr 09/02/21 20:15 09/03/21 07:25 Temperature 97.2 F 99.3 F Pulse Rate 62 62 Respiratory Rate 18 17 Blood Pressure 107/55 L 129/63 Pulse Oximetry 98 97 BMI result Body Mass Index 35.9 Labs Results: 08/22/21 06:59 08/29/21 09:17 Medications Medications Current Medications Acetaminophen (Acetaminophen 325 Mg Tablet) 650 mg PO Q6H PRN PRN Reason: Pain, Mild (Pain Scale 1-3) Last Admin: 09/02/21 20:38 Dose: 650 mg Documented by: Atorvastatin Calcium (Atorvastatin Calcium 20 Mg Tablet) 20 mg PO BEDTIME [facility] Last Admin: 09/02/21 20:44 Dose: Not Given Documented by: Cyanocobalamin (Cyanocobalamin (Vitamin B-12) 1,000 Mcg Tablet) 1,000 mcg PO DAILY [facility] Last Admin: 09/03/21 09:01 Dose: 1,000 mcg Documented by: Hydroxyzine HCl (Hydroxyzine Hcl 25 Mg Tablet) 25 mg PO BEDTIME [facility] Last Admin: 09/02/21 20:38 Dose: 25 mg Documented by: Losartan Potassium (Losartan Potassium 50 Mg Tablet) 100 mg PO DAILY [facility]; Protocol Last Admin: 09/03/21 09:01 Dose: 100 mg Documented by: Magnesium Hydroxide (Milk Of Magnesia 30 Ml Oral.Susp) 30 ml PO BID PRN PRN Reason: Constipation Last Admin: 08/27/21 11:13 Dose: 30 ml Documented by: Magnesium Oxide (Magnesium Oxide 400 Mg Tablet) 400 mg PO BID [facility] Last Admin: 09/03/21 09:01 Dose: 400 mg Documented by: Metformin HCl (Metformin Hcl Er 500 Mg Tab.Er.24h) 500 mg PO DAILY [facility] Last Admin: 09/03/21 09:01 Dose: 500 mg Documented by: Metoprolol Tartrate (Metoprolol Tartrate 25 Mg Tablet) 25 mg PO DAILY [facility]; Protocol Last Admin: 09/03/21 09:00 Dose: 25 mg Documented by: Ondansetron HCl (Ondansetron Odt 8 Mg Tab.Rapdis) 8 mg TRANSLINGU Q8H [facility] Last Admin: 09/03/21 09:01 Dose: 8 mg Documented by: Risperidone (Risperidone 0.25 Mg Tablet) 0.25 mg PO Q4H PRN PRN Reason: Anxiety Risperidone (Risperidone 1 Mg Tablet) 1 mg PO DAILY [facility] Last Admin: 09/03/21 09:00 Dose: 1 mg Documented by: Risperidone (Risperidone 2 Mg Tablet) 2 mg PO BEDTIME [facility] Last Admin: 09/02/21 20:38 Dose: 2 mg Documented by: Sertraline HCl (Sertraline Hcl 50 Mg Tablet) 50 mg PO DAILY [facility] Last Admin: 09/03/21 09:01 Dose: 50 mg Documented by: Trazodone HCl (Trazodone Hcl 25 Mg Halftab) 25 mg PO BEDTIME PRN PRN Reason: Insomnia Last Admin: 08/23/21 21:46 Dose: 25 mg Documented by: Allergies Allergies Allergy/AdvReac Type Severity Reaction Status Date / Time No Known Allergies Allergy Verified 08/20/21 17:22 Assessment & Plan Assessment & Plan (1) Delirium: Status: Acute Code(s): R41.0 - Disorientation, unspecified Assessment and Plan: the patient is an elderly female with a long history of depression for the last 6 years after the of her that has being psychotic, paranoid and disorganized in the last months. She was brought due to inappropriate sexual behavior, dizzy vision and altered mental status most likely due to UTI. Plan 1. Continue same medications. 2. increase risperidone up to 1.0 mg p.o. qhs and 2 mg po qhs. to target psychosis. 3. Atarax 25 QHS added 08/26 for sleep per pt request. 4. Court hearing for section 7 and 8 was delayed until next week 5. Family meeting yesterday for disposition. Most likely to be discharge to her home. (2) Psychosis: Status: Acute Code(s): F29 - Unspecified psychosis not due to a substance or known physiological condition (3) Diabetes: Status: Acute Code(s): E11.9 - Type 2 diabetes mellitus without complications (4) HTN (hypertension): Status: Acute Code(s): I10 - Essential (primary) hypertension I spent ____20__ minutes with the patient and/or on the patient floor today, greater than?50% of which was spent counseling/coordinating care. Patient educated on: therapeutic strategies Informed Consent: further education needed Reason for contiued inpatient stay Substantial Risk for: inability to function, rapid decompensation and med/psych decompensation
[2021-09-03 18:00] VITALS: BP 106/52; PULSE 55; RESP 18; TEMP 36.2; O2SAT 98
[2021-09-03] MEDS: risperiDONE 2 MG TABLET PO (20:05)
[2021-09-03] MEDS: hydrOXYzine HCL 25 MG TABLET PO (20:05)
[2021-09-04 06:00] VITALS: BP 126/61; PULSE 75; TEMP 36.4; O2SAT 98
[2021-09-04] MEDS: Sertraline HCL 50 MG TABLET PO (09:24)
[2021-09-04] MEDS: Losartan Potassium 50 MG TABLET 100 MG PO (09:24)
[2021-09-04] MEDS: metFORMIN HCl ER 500 MG TAB.ER.24H PO (09:24)
[2021-09-04] MEDS: Magnesium Oxide 400 MG TABLET PO ×2 (09:24→20:54)
[2021-09-04] MEDS: Metoprolol Tartrate 25 MG TABLET PO (09:24)
[2021-09-04] MEDS: Cyanocobalamin (Vitamin B-12) 1,000 MCG TABLET 1000 MCG PO (09:24)
[2021-09-04] MEDS: risperiDONE 1 MG TABLET PO (09:24)
--- NOTE | 2021-09-04 12:39 | P.PNPSI_ITS ---
Subjective Subjective Date of Service: 09/04/21 Reason For Visit: paranoid agitation Subjective Notes: Section 12B Interim History: The nursing staff reports that she does not attend to groups she goes up only for meals. The family will come today in visit her and see how she reacts with her daughter in low. On interview, the patient denies new symptoms she feels okay. At this moment she is on 3 mg of Risperdal daily with no side effects. Mental Status Exam Mental Status Exam Patient Appearance: Well Grooomed Patient Orientation: Person Level of Consciousness: Awake Patient Behavior: Cooperative Mood Description: Constricted Affect Description: Constricted Patient Cognition Impaired: Yes Ability to Follow Directions: Good Speech Pattern: Appropriate Hallucinations: None Delusions: Paranoid Ideation Thought Process: Illogical and Evasive Thought Content: positive for [place] and positive for Poverty of Content Judgement: Poor Diagnostics Vital Signs (24Hr): Vital Signs - 24 hr 09/03/21 18:00 Temperature 97.2 F Pulse Rate 55 Respiratory Rate 18 Blood Pressure 106/52 L Pulse Oximetry 98 BMI result Body Mass Index 35.9 Labs Results: 08/22/21 06:59 08/29/21 09:17 Medications Medications Current Medications Acetaminophen (Acetaminophen 325 Mg Tablet) 650 mg PO Q6H PRN PRN Reason: Pain, Mild (Pain Scale 1-3) Last Admin: 09/02/21 20:38 Dose: 650 mg Documented by: Atorvastatin Calcium (Atorvastatin Calcium 20 Mg Tablet) 20 mg PO BEDTIME [facility] Last Admin: 09/03/21 20:06 Dose: Not Given Documented by: Cyanocobalamin (Cyanocobalamin (Vitamin B-12) 1,000 Mcg Tablet) 1,000 mcg PO DAILY [facility] Last Admin: 09/04/21 09:24 Dose: 1,000 mcg Documented by: Hydroxyzine HCl (Hydroxyzine Hcl 25 Mg Tablet) 25 mg PO BEDTIME [facility] Last Admin: 09/03/21 20:05 Dose: 25 mg Documented by: Losartan Potassium (Losartan Potassium 50 Mg Tablet) 100 mg PO DAILY [facility]; Protocol Last Admin: 09/04/21 09:24 Dose: 100 mg Documented by: Magnesium Hydroxide (Milk Of Magnesia 30 Ml Oral.Susp) 30 ml PO BID PRN PRN Reason: Constipation Last Admin: 08/27/21 11:13 Dose: 30 ml Documented by: Magnesium Oxide (Magnesium Oxide 400 Mg Tablet) 400 mg PO BID [facility] Last Admin: 09/04/21 09:24 Dose: 400 mg Documented by: Metformin HCl (Metformin Hcl Er 500 Mg Tab.Er.24h) 500 mg PO DAILY [facility] Last Admin: 09/04/21 09:24 Dose: 500 mg Documented by: Metoprolol Tartrate (Metoprolol Tartrate 25 Mg Tablet) 25 mg PO DAILY [facility]; Protocol Last Admin: 09/04/21 09:24 Dose: 25 mg Documented by: Ondansetron HCl (Ondansetron Odt 8 Mg Tab.Rapdis) 8 mg TRANSLINGU Q8H [facility] Last Admin: 09/04/21 09:25 Dose: Not Given Documented by: Risperidone (Risperidone 0.25 Mg Tablet) 0.25 mg PO Q4H PRN PRN Reason: Anxiety Risperidone (Risperidone 1 Mg Tablet) 1 mg PO DAILY [facility] Last Admin: 09/04/21 09:24 Dose: 1 mg Documented by: Risperidone (Risperidone 2 Mg Tablet) 2 mg PO BEDTIME [facility] Last Admin: 09/03/21 20:05 Dose: 2 mg Documented by: Sertraline HCl (Sertraline Hcl 50 Mg Tablet) 50 mg PO DAILY [facility] Last Admin: 09/04/21 09:24 Dose: 50 mg Documented by: Trazodone HCl (Trazodone Hcl 25 Mg Halftab) 25 mg PO BEDTIME PRN PRN Reason: Insomnia Last Admin: 08/23/21 21:46 Dose: 25 mg Documented by: Allergies Allergies Allergy/AdvReac Type Severity Reaction Status Date / Time No Known Allergies Allergy Verified 08/20/21 17:22 Assessment & Plan Assessment & Plan (1) Delirium: Status: Acute Code(s): R41.0 - Disorientation, unspecified Assessment and Plan: the patient is an elderly female with a long history of depression for the last 6 years after the of her that has being psychotic, paranoid and disorganized in the last months. She was brought due to inappropriate sexual behavior, dizzy vision and altered mental status most likely due to UTI. Plan 1. Continue same medications. 2. increase risperidone up to 1.0 mg p.o. qhs and 2 mg po qhs. to target psychosis. 3. Atarax 25 QHS added 08/26 for sleep per pt request. 4. Court hearing for section 7 and 8 was delayed until next week 5. Family meeting yesterday for disposition. Most likely to be discharge to her home. (2) Psychosis: Status: Acute Code(s): F29 - Unspecified psychosis not due to a substance or known physiological condition (3) Diabetes: Status: Acute Code(s): E11.9 - Type 2 diabetes mellitus without complications (4) HTN (hypertension): Status: Acute Code(s): I10 - Essential (primary) hypertension I spent ___20___ minutes with the patient and/or on the patient floor today, greater than?50% of which was spent counseling/coordinating care. Patient educated on: therapeutic strategies Informed Consent: further education needed Reason for contiued inpatient stay Substantial Risk for: inability to function, rapid decompensation and med/psych decompensation
[2021-09-04 18:00] VITALS: BP 121/59; PULSE 62; RESP 18; TEMP 36.6; O2SAT 97
[2021-09-04] MEDS: Atorvastatin Calcium 20 MG TABLET PO (20:53)
[2021-09-04] MEDS: hydrOXYzine HCL 25 MG TABLET PO (20:53)
[2021-09-04] MEDS: risperiDONE 2 MG TABLET PO (20:53)
[2021-09-05 06:00] VITALS: BP 126/58; PULSE 76; TEMP 36.3; O2SAT 98
[2021-09-05 06:42] LABS: Creatinine Clr Calc Pharmacy 49.8; Estimated Glomerular Filt Rate 51
[2021-09-05 07:00] VITALS: BMI 37.2
[2021-09-05] MEDS: Cyanocobalamin (Vitamin B-12) 1,000 MCG TABLET 1000 MCG PO (09:55)
[2021-09-05] MEDS: Losartan Potassium 50 MG TABLET 100 MG PO (09:55)
[2021-09-05] MEDS: risperiDONE 1 MG TABLET PO (09:55)
[2021-09-05] MEDS: Magnesium Oxide 400 MG TABLET PO ×2 (09:55→20:59)
[2021-09-05] MEDS: Ondansetron ODT 8 MG TAB.RAPDIS TRANSLINGU (09:55)
[2021-09-05] MEDS: Metoprolol Tartrate 25 MG TABLET PO (09:55)
[2021-09-05] MEDS: metFORMIN HCl ER 500 MG TAB.ER.24H PO (09:55)
[2021-09-05] MEDS: Sertraline HCL 50 MG TABLET PO (09:56)
--- NOTE | 2021-09-05 14:33 | P.PNPSI_ITS ---
Subjective Subjective Date of Service: 09/05/21 Reason For Visit: paranoid agitation Subjective Notes: Conditional Voluntary Interim History: The nursing staff reported the patient stays in her room most of the time, she is fully compliant with treatment. The manager social had a family meeting of 2 hours with her son, [id number] and the patient and apparently she is still paranoid but no overt behavioral response. On interview, the patient complaints of rectal pain and asked for Preparation H. She is pleasantly confused at times. Her [place] test is low Mental Status Exam Mental Status Exam Patient Appearance: Well Grooomed Patient Orientation: Person Level of Consciousness: Awake Mood Description: Withdrawn Affect Description: Constricted Patient Cognition Impaired: Yes Ability to Follow Directions: Good Speech Pattern: Clear Memory Description: Intact Hallucinations: None Delusions: Paranoid Ideation Thought Process: Distracted Thought Content: positive for Circumstantial Judgement: Fair Diagnostics Vital Signs (24Hr): Vital Signs - 24 hr 09/04/21 18:00 Temperature 97.8 F Pulse Rate 62 Respiratory Rate 18 Blood Pressure 121/59 L Pulse Oximetry 97 BMI result Body Mass Index 37.2 Labs Results: 08/22/21 06:59 09/05/21 06:19 Labs: Laboratory Results - last 48 hr 09/05/21 06:19 Creatinine 1.05 Estim Creat Clear Calc 49.8 Estimated GFR 51 Medications Medications Current Medications Acetaminophen (Acetaminophen 325 Mg Tablet) 650 mg PO Q6H PRN PRN Reason: Pain, Mild (Pain Scale 1-3) Last Admin: 09/02/21 20:38 Dose: 650 mg Documented by: Atorvastatin Calcium (Atorvastatin Calcium 20 Mg Tablet) 20 mg PO BEDTIME [facility] Last Admin: 09/04/21 20:53 Dose: 20 mg Documented by: Cyanocobalamin (Cyanocobalamin (Vitamin B-12) 1,000 Mcg Tablet) 1,000 mcg PO DAILY [facility] Last Admin: 09/05/21 09:55 Dose: 1,000 mcg Documented by: Hydroxyzine HCl (Hydroxyzine Hcl 25 Mg Tablet) 25 mg PO BEDTIME [facility] Last Admin: 09/04/21 20:53 Dose: 25 mg Documented by: Losartan Potassium (Losartan Potassium 50 Mg Tablet) 100 mg PO DAILY [facility]; Protocol Last Admin: 09/05/21 09:55 Dose: 100 mg Documented by: Magnesium Hydroxide (Milk Of Magnesia 30 Ml Oral.Susp) 30 ml PO BID PRN PRN Reason: Constipation Last Admin: 08/27/21 11:13 Dose: 30 ml Documented by: Magnesium Oxide (Magnesium Oxide 400 Mg Tablet) 400 mg PO BID [facility] Last Admin: 09/05/21 09:55 Dose: 400 mg Documented by: Metformin HCl (Metformin Hcl Er 500 Mg Tab.Er.24h) 500 mg PO DAILY [facility] Last Admin: 09/05/21 09:55 Dose: 500 mg Documented by: Metoprolol Tartrate (Metoprolol Tartrate 25 Mg Tablet) 25 mg PO DAILY [facility]; Protocol Last Admin: 09/05/21 09:55 Dose: 25 mg Documented by: Ondansetron HCl (Ondansetron Odt 8 Mg Tab.Rapdis) 8 mg TRANSLINGU Q8H [facility] Last Admin: 09/05/21 09:55 Dose: 8 mg Documented by: Risperidone (Risperidone 0.25 Mg Tablet) 0.25 mg PO Q4H PRN PRN Reason: Anxiety Risperidone (Risperidone 1 Mg Tablet) 1 mg PO DAILY [facility] Last Admin: 09/05/21 09:55 Dose: 1 mg Documented by: Risperidone (Risperidone 2 Mg Tablet) 2 mg PO BEDTIME [facility] Last Admin: 09/04/21 20:53 Dose: 2 mg Documented by: Sertraline HCl (Sertraline Hcl 50 Mg Tablet) 50 mg PO DAILY [facility] Last Admin: 09/05/21 09:56 Dose: 50 mg Documented by: Trazodone HCl (Trazodone Hcl 25 Mg Halftab) 25 mg PO BEDTIME PRN PRN Reason: Insomnia Last Admin: 08/23/21 21:46 Dose: 25 mg Documented by: Allergies Allergies Allergy/AdvReac Type Severity Reaction Status Date / Time No Known Allergies Allergy Verified 08/20/21 17:22 Assessment & Plan Assessment & Plan (1) Delirium: Status: Acute Code(s): R41.0 - Disorientation, unspecified Assessment and Plan: the patient is an elderly female with a long history of depression for the last 6 years after the of her that has being psychotic, paranoid and disorganized in the last months. She was brought due to inappropriate sexual behavior, dizzy vision and altered mental status most likely due to UTI. Plan 1. Continue same medications. 2. increase risperidone up to 1.0 mg p.o. qhs and 2 mg po qhs. to target psychosis. 3. Atarax 25 QHS added 08/26 for sleep per pt request. 4. Court hearing for section 7 and 8 was delayed until next week 5. Family meeting yesterday for disposition. Most likely to be discharge to her home. (2) Psychosis: Status: Acute Code(s): F29 - Unspecified psychosis not due to a substance or known physiological condition (3) Diabetes: Status: Acute Code(s): E11.9 - Type 2 diabetes mellitus without complications (4) HTN (hypertension): Status: Acute Code(s): I10 - Essential (primary) hypertension I spent minutes with the patient and/or on the patient floor today, greater than?50% of which was spent counseling/coordinating care. Reason for contiued inpatient stay Substantial Risk for: inability to function, rapid decompensation and med/psych decompensation
--- NOTE | 2021-09-05 15:06 | PM.PSYDC ---
DS: Providers Provider Date of Service: 09/06/21 Date of admission: 08/20/21 16:41 Date of discharge: 09/06/21 Primary care physician: Unknown Physician Consults: 08/21/21 10:58 Consult to Hospitalist Routine Consulting Provider: Hospitalist Reason For Exam: Direct admission DS: Diagnosis Discharge Diagnosis (1) Delirium: Status: Acute (2) Psychosis: Status: Acute (3) Diabetes: Status: Acute (4) HTN (hypertension): Status: Acute DS: Medications Discharge Medications Home Medications: Home Medications Medication Instructions Recorded Confirmed atorvastatin 20 mg tablet 20 mg PO BEDTIME 08/20/21 08/20/21 cyanocobalamin (vitamin B-12) 1,000 mcg PO DAILY 08/20/21 08/20/21 1,000 mcg tablet (Vitamin B-12) losartan 100 mg tablet 100 mg PO DAILY 08/20/21 08/20/21 magnesium oxide 400 mg PO BID 08/20/21 08/20/21 metformin 500 mg tablet,extended 500 mg PO DAILY 08/20/21 08/20/21 release 24 hr metoprolol tartrate 50 mg tablet 25 mg PO DAILY 08/20/21 08/20/21 (Lopressor) ondansetron 8 mg disintegrating 8 mg PO Q8H 08/20/21 08/20/21 tablet sertraline 50 mg tablet 50 mg PO DAILY 08/20/21 08/20/21 Mental Status Exam Mental Status Exam Patient Appearance: Well Grooomed Patient Orientation: Person Level of Consciousness: Awake Patient Behavior: Guarded and Suspicious Mood Description: Withdrawn Affect Description: Constricted Patient Cognition Impaired: Yes Ability to Follow Directions: Fair Speech Pattern: Clear Memory Description: Intact Hallucinations: None Delusions: Paranoid Ideation Thought Process: Distracted and Evasive Thought Content: positive for [place] and positive for Poverty of Content Judgement: Fair Data Data Completed and Pending Completed studies during hospitalization [Text1]: 09/05/21 06:19 Creatinine 1.05 Estim Creat Clear Calc 49.8 Estimated GFR 51 DS: Summary Hospital Course Hospital Course: the patient was admitted to this unit, referred from the emergency report department of another hospital due to psychotic symptoms elicited by paranoia, disorganized behavior and agitation. Please see HPI of the admission note for further details. On intake, since the patient had psychotic symptoms we started with a slow titration of Risperdal. Since the patient was completely night if to this class of medications we started on a very slow titration and finally we could get up to Risperdal 1 mg p.o. q.a.m. and 2 mg p.o. q.h.s. without any side effects or over-sedation. The patient psychotic symptoms improved, she did not show any paranoid delusions or auditory hallucinations. Even though that she was not a vocal on her paranoia against her daughter in low and family, it was clear that the patient has still have does believes but there is no evidence of agitation or unsafe behaviors. Her [place] test showed a cognitive impairment, she scored 17/30 and her [place] test showed that she needs 24 hour supervision. We had several family meetings with the family and they want her back to the community. She usually lives in an in-law apartment next to her son. The patient has a fixed delusion against her [id number]. We discussed at length treatment options and safe disposition plans and the family will pursue legal guardianship. A medical certificate for guardianship was issued, also a letter to the [facility] since the patient is driving and she is unsafe to drive. Since there were no safety concerns discharge planning was discussed Time spent discussing smoking cessation with patient: more than 10 minutes Status at Discharge Cognitive/behavioral status at discharge: the patient cognition is poor at baseline Functional status at discharge: independent ambulation Overall status at discharge: patient is back to baseline Time Spent with Patient Time attestation: Total time spent providing and/or coordinating discharge services: Time spent: Less than 30 minutes Discharge Plan Discharge Patient Disposition: Home, Self-Care Discharge Diagnosis: psychosis Dementia Referrals: Yuly Javier NP [Other] - 09/17/21 11:30 am (Your appointment with Yuly is 09/17/21 at 11:30pm.) [facility] [Other] - 09/09/21 (Your family independence case manager through [facility] Protective services department will contact you for visit following discharge and her name is Josephine Talamantes. She will be in contact [facility] family independence case manager Pina Castro to discuss increase in services provided by [facility] for homemaking and will discuss possibke additional specialized services available in the community with you and your family. Please continue to follow up with your [facility] elder services case management specialist to assist with community resources and services available to you in the community.) Discharge Medications: New risperidone 2 mg Tablet 2 mg PO BEDTIME 30 Days Qty: 30 0RF risperidone 1 mg Tablet 1 mg PO DAILY 30 Days Qty: 30 0RF Continued atorvastatin 20 mg Tablet 20 mg PO BEDTIME 30 Days Qty: 30 0RF cyanocobalamin (vitamin B-12) [Vitamin B-12] 1,000 mcg Tablet 1,000 mcg PO DAILY 30 Days Qty: 30 0RF ondansetron 8 mg Tablet,Disintegrating 8 mg PO Q8H 30 Days Qty: 90 0RF metoprolol tartrate [Lopressor] 50 mg Tablet 25 mg PO DAILY 30 Days Qty: 15 0RF losartan 100 mg Tablet 100 mg PO DAILY 30 Days Qty: 30 0RF metformin 500 mg Tablet Extended Release 24 Hr 500 mg PO DAILY 30 Days Qty: 30 0RF sertraline 50 mg Tablet 50 mg PO DAILY 30 Days Qty: 30 0RF magnesium oxide 400 mg magnesium Tablet 400 mg PO BID 30 Days Qty: 60 0RF Discharge Orders: Discharge Order (Routine); Ordered 09/06/21 Ordered By: Cooper Dominguez Diet: advance to usual diet Activity on Discharge: As tolerated Stand Alone Forms: Patient Portal Discharge page Care Plan Goals: care plan goals achieved on this admission Health Concerns: continue treatment as per primary care physician in the community Plan of Treatment: continue outpatient services Assessment: elderly female with a long history of dementia that worsened with psychosis that probably was precipitated by UTI. Currently she is safe in the community she tolerated very well Risperdal and there is no evidence of violent behavior. Medical certificate for guardianship, letter for DMV was issued
[2021-09-05 16:43] LABS: COVID-19 Test Negative (Negative)
[2021-09-05 20:52] VITALS: BP 115/54; PULSE 65; RESP 18; TEMP 36.4; O2SAT 95
[2021-09-05] MEDS: hydrOXYzine HCL 25 MG TABLET PO (20:59)
[2021-09-05] MEDS: risperiDONE 2 MG TABLET PO (20:59)
[2021-09-06 07:30] VITALS: BP 151/70; PULSE 74; RESP 18; TEMP 37.3; O2SAT 96
[2021-09-06] MEDS: Ondansetron ODT 8 MG TAB.RAPDIS TRANSLINGU ×2 (09:08→17:29)
[2021-09-06] MEDS: risperiDONE 1 MG TABLET PO (09:08)
[2021-09-06] MEDS: Losartan Potassium 50 MG TABLET 100 MG PO (09:08)
[2021-09-06] MEDS: Sertraline HCL 50 MG TABLET PO (09:09)
[2021-09-06] MEDS: Metoprolol Tartrate 25 MG TABLET PO (09:09)
[2021-09-06] MEDS: Magnesium Oxide 400 MG TABLET PO ×2 (09:09→21:22)
[2021-09-06] MEDS: Hydrocortisone 2.5 % Rectal Cr 30 GM TUBE 1 APPL PR (09:09)
[2021-09-06] MEDS: Cyanocobalamin (Vitamin B-12) 1,000 MCG TABLET 1000 MCG PO (09:09)
[2021-09-06] MEDS: metFORMIN HCl ER 500 MG TAB.ER.24H PO (09:09)
--- NOTE | 2021-09-06 10:35 | P.PNPSI_ITS ---
Subjective Subjective Date of Service: 09/06/21 Reason For Visit: paranoid agitation Subjective Notes: Section 7 Interim History: Pt was scheduled to be discharged today but family not ready to take her. Pt reports rectal pain secondary to hemorroids. Pt reports constipation, otherwise, pt pleasant, no over psychosis or delusional content reported or noted. She d enies SI/HI. Medication Compliance: Yes Side effects from medications: No Review of Systems Review of Systems Yes all other systems are reviewed and are negative Mental Status Exam Mental Status Exam Narrative: adequately dressed and groomed, lying in bed. cooperative with interview. no PMA/PMR. speech nml in rate, amount, and loudness. nml tone, latency. thoughts logical and no expression of delusion or paranoia. affect constricted, non-labile. no SI/HI/AVH expressed. Diagnostics Vital Signs (24Hr): Vital Signs - 24 hr 09/08/21 20:06 Temperature 98.0 F Pulse Rate 70 Respiratory Rate 18 Blood Pressure 115/53 L Pulse Oximetry 94 BMI result Body Mass Index 37.2 Labs Results: 08/22/21 06:59 09/05/21 06:19 Medications Medications Current Medications Acetaminophen (Acetaminophen 325 Mg Tablet) 650 mg PO Q6H PRN PRN Reason: Pain, Mild (Pain Scale 1-3) Last Admin: 09/08/21 19:51 Dose: 650 mg Documented by: Atorvastatin Calcium (Atorvastatin Calcium 20 Mg Tablet) 20 mg PO BEDTIME [facility] Last Admin: 09/08/21 19:47 Dose: Not Given Documented by: Cyanocobalamin (Cyanocobalamin (Vitamin B-12) 1,000 Mcg Tablet) 1,000 mcg PO DAILY [facility] Last Admin: 09/08/21 08:25 Dose: 1,000 mcg Documented by: Hydrocortisone (Hydrocortisone 2.5 % Rectal Cr 30 Gm Tube) 1 appl [place] BID [facility] Last Admin: 09/08/21 19:49 Dose: 1 appl Documented by: Hydroxyzine HCl (Hydroxyzine Hcl 25 Mg Tablet) 25 mg PO BEDTIME [facility] Last Admin: 09/08/21 19:47 Dose: 25 mg Documented by: Losartan Potassium (Losartan Potassium 50 Mg Tablet) 100 mg PO DAILY [facility]; Protocol Last Admin: 09/08/21 08:25 Dose: 100 mg Documented by: Magnesium Hydroxide (Milk Of Magnesia 30 Ml Oral.Susp) 30 ml PO BID PRN PRN Reason: Constipation Last Admin: 08/27/21 11:13 Dose: 30 ml Documented by: Magnesium Oxide (Magnesium Oxide 400 Mg Tablet) 400 mg PO BID [facility] Last Admin: 09/08/21 19:47 Dose: 400 mg Documented by: Metformin HCl (Metformin Hcl Er 500 Mg Tab.Er.24h) 500 mg PO DAILY [facility] Last Admin: 09/08/21 08:25 Dose: 500 mg Documented by: Metoprolol Tartrate (Metoprolol Tartrate 25 Mg Tablet) 25 mg PO DAILY [facility]; Protocol Last Admin: 09/08/21 08:25 Dose: 25 mg Documented by: Ondansetron HCl (Ondansetron Odt 8 Mg Tab.Rapdis) 8 mg TRANSLINGU Q8H [facility] Last Admin: 09/09/21 03:14 Dose: Not Given Documented by: Psyllium Hydrophilic Mucilloid (Psyllium Seed 3.4 Gm Powd.Pack) 3.4 gm PO DAILY [facility] Last Admin: 09/08/21 12:08 Dose: Not Given Documented by: Risperidone (Risperidone 0.25 Mg Tablet) 0.25 mg PO Q4H PRN PRN Reason: Anxiety Risperidone (Risperidone 1 Mg Tablet) 1 mg PO DAILY [facility] Last Admin: 09/08/21 08:25 Dose: 1 mg Documented by: Risperidone (Risperidone 2 Mg Tablet) 2 mg PO BEDTIME [facility] Last Admin: 09/08/21 19:47 Dose: 2 mg Documented by: Sertraline HCl (Sertraline Hcl 50 Mg Tablet) 50 mg PO DAILY [facility] Last Admin: 09/08/21 08:25 Dose: 50 mg Documented by: Trazodone HCl (Trazodone Hcl 25 Mg Halftab) 25 mg PO BEDTIME PRN PRN Reason: Insomnia Last Admin: 08/23/21 21:46 Dose: 25 mg Documented by: Allergies Allergies Allergy/AdvReac Type Severity Reaction Status Date / Time No Known Allergies Allergy Verified 08/20/21 17:22 Assessment & Plan Assessment & Plan (1) Delirium: Status: Acute Code(s): R41.0 - Disorientation, unspecified Assessment and Plan: the patient is an elderly female with a long history of depression for the last 6 years after the of her that has being psychotic, paranoid and disorganized in the last months. She was brought due to inappropriate sexual behavior, dizzy vision and altered mental status most likely due to UTI. Plan 1. Continue same medications. 2. increase risperidone up to 1.0 mg p.o. qhs and 2 mg po qhs. to target psychosis. 3. Atarax 25 QHS added 08/26 for sleep per pt request. 4. Court hearing for section 7 and 8 was delayed until next week 5. Family meeting yesterday for disposition. Most likely to be discharge to her home. / added metamucil as preventive measure for constipation. on hydrocortisone BID for hemorroids will add witch lauren pads. (2) Psychosis: Status: Acute Code(s): F29 - Unspecified psychosis not due to a substance or known physiological condi tion (3) Diabetes: Status: Acute Code(s): E11.9 - Type 2 diabetes mellitus without complications (4) HTN (hypertension): Status: Acute Code(s): I10 - Essential (primary) hypertension I spent minutes with the patient and/or on the patient floor today, greater than?50% of which was spent counseling/coordinating care. Reason for contiued inpatient stay Substantial Risk for: inability to function
[2021-09-06 21:05] VITALS: BP 126/60; PULSE 63; RESP 18; TEMP 36.2; O2SAT 96
[2021-09-06] MEDS: risperiDONE 2 MG TABLET PO (21:22)
[2021-09-06] MEDS: Acetaminophen 325 MG TABLET 650 MG PO (21:23)
[2021-09-06] MEDS: hydrOXYzine HCL 25 MG TABLET PO (21:23)
[2021-09-07] MEDS: Hydrocortisone 2.5 % Rectal Cr 30 GM TUBE 1 APPL PR ×2 (05:31→20:58)
[2021-09-07 06:00] VITALS: BP 126/58; PULSE 67; RESP 16; TEMP 37.1; O2SAT 95
--- NOTE | 2021-09-07 07:37 | P.PNPSI_ITS ---
Subjective Subjective Date of Service: 09/07/21 Reason For Visit: paranoid agitation Subjective Notes: Section 7 Interim History: Pt mostly in bed, continues to report pain s/s to hemorroids, reports constipation. No SI/HI. Will add miralax. Per nursing, no behavioral concerns. Medication Compliance: Yes Side effects from medications: No Review of Systems Review of Systems Yes all other systems are reviewed and are negative Mental Status Exam Mental Status Exam Narrative: adequately dressed and groomed, lying in bed. cooperative with interview. no PMA/PMR. speech nml in rate, amount, and loudness. nml tone, latency. thoughts logical and no expression of delusion or paranoia. affect constricted, non-labile. no SI/HI/AVH expressed. Diagnostics Vital Signs (24Hr): Vital Signs - 24 hr 09/08/21 20:06 Temperature 98.0 F Pulse Rate 70 Respiratory Rate 18 Blood Pressure 115/53 L Pulse Oximetry 94 BMI result Body Mass Index 37.2 Labs Results: 08/22/21 06:59 09/05/21 06:19 Medications Medications Current Medications Acetaminophen (Acetaminophen 325 Mg Tablet) 650 mg PO Q6H PRN PRN Reason: Pain, Mild (Pain Scale 1-3) Last Admin: 09/08/21 19:51 Dose: 650 mg Documented by: Atorvastatin Calcium (Atorvastatin Calcium 20 Mg Tablet) 20 mg PO BEDTIME [facility] Last Admin: 09/08/21 19:47 Dose: Not Given Documented by: Cyanocobalamin (Cyanocobalamin (Vitamin B-12) 1,000 Mcg Tablet) 1,000 mcg PO DAILY [facility] Last Admin: 09/08/21 08:25 Dose: 1,000 mcg Documented by: Hydrocortisone (Hydrocortisone 2.5 % Rectal Cr 30 Gm Tube) 1 appl [place] BID [facility] Last Admin: 09/08/21 19:49 Dose: 1 appl Documented by: Hydroxyzine HCl (Hydroxyzine Hcl 25 Mg Tablet) 25 mg PO BEDTIME [facility] Last Admin: 09/08/21 19:47 Dose: 25 mg Documented by: Losartan Potassium (Losartan Potassium 50 Mg Tablet) 100 mg PO DAILY [facility]; Protocol Last Admin: 09/08/21 08:25 Dose: 100 mg Documented by: Magnesium Hydroxide (Milk Of Magnesia 30 Ml Oral.Susp) 30 ml PO BID PRN PRN Reason: Constipation Last Admin: 08/27/21 11:13 Dose: 30 ml Documented by: Magnesium Oxide (Magnesium Oxide 400 Mg Tablet) 400 mg PO BID [facility] Last Admin: 09/08/21 19:47 Dose: 400 mg Documented by: Metformin HCl (Metformin Hcl Er 500 Mg Tab.Er.24h) 500 mg PO DAILY [facility] Last Admin: 09/08/21 08:25 Dose: 500 mg Documented by: Metoprolol Tartrate (Metoprolol Tartrate 25 Mg Tablet) 25 mg PO DAILY [facility]; Protocol Last Admin: 09/08/21 08:25 Dose: 25 mg Documented by: Ondansetron HCl (Ondansetron Odt 8 Mg Tab.Rapdis) 8 mg TRANSLINGU Q8H [facility] Last Admin: 09/09/21 03:14 Dose: Not Given Documented by: Psyllium Hydrophilic Mucilloid (Psyllium Seed 3.4 Gm Powd.Pack) 3.4 gm PO DAILY [facility] Last Admin: 09/08/21 12:08 Dose: Not Given Documented by: Risperidone (Risperidone 0.25 Mg Tablet) 0.25 mg PO Q4H PRN PRN Reason: Anxiety Risperidone (Risperidone 1 Mg Tablet) 1 mg PO DAILY [facility] Last Admin: 09/08/21 08:25 Dose: 1 mg Documented by: Risperidone (Risperidone 2 Mg Tablet) 2 mg PO BEDTIME [facility] Last Admin: 09/08/21 19:47 Dose: 2 mg Documented by: Sertraline HCl (Sertraline Hcl 50 Mg Tablet) 50 mg PO DAILY [facility] Last Admin: 09/08/21 08:25 Dose: 50 mg Documented by: Trazodone HCl (Trazodone Hcl 25 Mg Halftab) 25 mg PO BEDTIME PRN PRN Reason: Insomnia Last Admin: 08/23/21 21:46 Dose: 25 mg Documented by: Allergies Allergies Allergy/AdvReac Type Severity Reaction Status Date / Time No Known Allergies Allergy Verified 08/20/21 17:22 Assessment & Plan Assessment & Plan (1) Delirium: Status: Acute Code(s): R41.0 - Disorientation, unspecified Assessment and Plan: the patient is an elderly female with a long history of depression for the last 6 years after the of her that has being psychotic, paranoid and disorganized in the last months. She was brought due to inappropriate sexual behavior, dizzy vision and altered mental status most likely due to UTI. Plan 1. Continue same medications. 2. increase risperidone up to 1.0 mg p.o. qhs and 2 mg po qhs. to target psychosis. 3. Atarax 25 QHS added 08/26 for sleep per pt request. 4. Court hearing for section 7 and 8 was delayed until next week 5. Family meeting yesterday for disposition. Most likely to be discharge to her home. 09/06 added metamucil as preventive measure for constipation. on hydrocortisone BID for hemorroids will add witch lauren pads. (2) Psychosis: Status: Acute Code(s): F29 - Unspecified psychosis not due to a substance or known physiological cond ition (3) Diabetes: Status: Acute Code(s): E11.9 - Type 2 diabetes mellitus without complications (4) HTN (hypertension): Status: Acute Code(s): I10 - Essential (primary) hypertension I spent minutes with the patient and/or on the patient floor today, greater than?50% of which was spent counseling/coordinating care. Reason for contiued inpatient stay Substantial Risk for: inability to function
[2021-09-07] MEDS: Metoprolol Tartrate 25 MG TABLET PO (10:06)
[2021-09-07] MEDS: metFORMIN HCl ER 500 MG TAB.ER.24H PO (10:06)
[2021-09-07] MEDS: Magnesium Oxide 400 MG TABLET PO ×2 (10:06→20:51)
[2021-09-07] MEDS: Sertraline HCL 50 MG TABLET PO (10:06)
[2021-09-07] MEDS: risperiDONE 1 MG TABLET PO (10:06)
[2021-09-07] MEDS: Losartan Potassium 50 MG TABLET 100 MG PO (10:06)
[2021-09-07] MEDS: Cyanocobalamin (Vitamin B-12) 1,000 MCG TABLET 1000 MCG PO (10:06)
[2021-09-07] MEDS: Ondansetron ODT 8 MG TAB.RAPDIS TRANSLINGU (10:08)
[2021-09-07 20:45] VITALS: BP 121/56; PULSE 70; RESP 16; TEMP 37.2; O2SAT 97
[2021-09-07] MEDS: Acetaminophen 325 MG TABLET 650 MG PO (20:51)
[2021-09-07] MEDS: risperiDONE 2 MG TABLET PO (20:51)
[2021-09-07] MEDS: hydrOXYzine HCL 25 MG TABLET PO (20:51)
[2021-09-08 06:00] VITALS: BP 109/60; PULSE 66; TEMP 36.6; O2SAT 94
--- NOTE | 2021-09-08 07:39 | HO.PSYCHPN ---
Subjective Subjective Date of Service: 09/08/21 Reason For Visit: paranoid agitation Subjective Notes: Section 7 Interim History: Pt mostly in bed, continues to report pain s/s to hemorroids, reports constipation. No SI/HI. No over psychosis or delusional content reported. Per nursing, no behavioral concerns. Review of Systems Review of Systems Yes all other systems are reviewed and are negative Mental Status Exam Mental Status Exam Narrative: adequately dressed and groomed, lying in bed. cooperative with interview. no PMA/PMR. speech nml in rate, amount, and loudness. nml tone, latency. thoughts logical and no expression of delusion or paranoia. affect constricted, non-labile. no SI/HI/AVH expressed. Patient Appearance: Well Grooomed Patient Orientation: Person Level of Consciousness: Awake Patient Behavior: Guarded and Suspicious Mood Description: Withdrawn Affect Description: Constricted Patient Cognition Impaired: Yes Ability to Follow Directions: Fair Speech Pattern: Clear Memory Description: Intact Diagnostics Vital Signs (24Hr): Vital Signs - 24 hr 09/08/21 20:06 Temperature 98.0 F Pulse Rate 70 Respiratory Rate 18 Blood Pressure 115/53 L Pulse Oximetry 94 BMI result Body Mass Index 37.2 Labs Results: 08/22/21 06:59 09/05/21 06:19 Medications Medications Current Medications Acetaminophen (Acetaminophen 325 Mg Tablet) 650 mg PO Q6H PRN PRN Reason: Pain, Mild (Pain Scale 1-3) Last Admin: 09/08/21 19:51 Dose: 650 mg Documented by: Atorvastatin Calcium (Atorvastatin Calcium 20 Mg Tablet) 20 mg PO BEDTIME [facility] Last Admin: 09/08/21 19:47 Dose: Not Given Documented by: Cyanocobalamin (Cyanocobalamin (Vitamin B-12) 1,000 Mcg Tablet) 1,000 mcg PO DAILY [facility] Last Admin: 09/08/21 08:25 Dose: 1,000 mcg Documented by: Hydrocortisone (Hydrocortisone 2.5 % Rectal Cr 30 Gm Tube) 1 appl [place] BID [facility] Last Admin: 09/08/21 19:49 Dose: 1 appl Documented by: Hydroxyzine HCl (Hydroxyzine Hcl 25 Mg Tablet) 25 mg PO BEDTIME [facility] Last Admin: 09/08/21 19:47 Dose: 25 mg Documented by: Losartan Potassium (Losartan Potassium 50 Mg Tablet) 100 mg PO DAILY [facility]; Protocol Last Admin: 09/08/21 08:25 Dose: 100 mg Documented by: Magnesium Hydroxide (Milk Of Magnesia 30 Ml Oral.Susp) 30 ml PO BID PRN PRN Reason: Constipation Last Admin: 08/27/21 11:13 Dose: 30 ml Documented by: Magnesium Oxide (Magnesium Oxide 400 Mg Tablet) 400 mg PO BID [facility] Last Admin: 09/08/21 19:47 Dose: 400 mg Documented by: Metformin HCl (Metformin Hcl Er 500 Mg Tab.Er.24h) 500 mg PO DAILY [facility] Last Admin: 09/08/21 08:25 Dose: 500 mg Documented by: Metoprolol Tartrate (Metoprolol Tartrate 25 Mg Tablet) 25 mg PO DAILY [facility]; Protocol Last Admin: 09/08/21 08:25 Dose: 25 mg Documented by: Ondansetron HCl (Ondansetron Odt 8 Mg Tab.Rapdis) 8 mg TRANSLINGU Q8H [facility] Last Admin: 09/09/21 03:14 Dose: Not Given Documented by: Psyllium Hydrophilic Mucilloid (Psyllium Seed 3.4 Gm Powd.Pack) 3.4 gm PO DAILY [facility] Last Admin: 09/08/21 12:08 Dose: Not Given Documented by: Risperidone (Risperidone 0.25 Mg Tablet) 0.25 mg PO Q4H PRN PRN Reason: Anxiety Risperidone (Risperidone 1 Mg Tablet) 1 mg PO DAILY [facility] Last Admin: 09/08/21 08:25 Dose: 1 mg Documented by: Risperidone (Risperidone 2 Mg Tablet) 2 mg PO BEDTIME [facility] Last Admin: 09/08/21 19:47 Dose: 2 mg Documented by: Sertraline HCl (Sertraline Hcl 50 Mg Tablet) 50 mg PO DAILY [facility] Last Admin: 09/08/21 08:25 Dose: 50 mg Documented by: Trazodone HCl (Trazodone Hcl 25 Mg Halftab) 25 mg PO BEDTIME PRN PRN Reason: Insomnia Last Admin: 08/23/21 21:46 Dose: 25 mg Documented by: Allergies Allergies Allergy/AdvReac Type Severity Reaction Status Date / Time No Known Allergies Allergy Verified 08/20/21 17:22 Assessment & Plan Assessment & Plan (1) Delirium: Status: Acute Code(s): R41.0 - Disorientation, unspecified Assessment and Plan: the patient is an elderly female with a long history of depression for the last 6 years after the of her that has being psychotic, paranoid and disorganized in the last months. She was brought due to inappropriate sexual behavior, dizzy vision and altered mental status most likely due to UTI. Plan 1. Continue same medications. 2. increase risperidone up to 1.0 mg p.o. qhs and 2 mg po qhs. to target psychosis. 3. Atarax 25 QHS added 08/26 for sleep per pt request. 4. Court hearing for section 7 and 8 was delayed until next week 5. Family meeting yesterday for disposition. Most likely to be discharge to her home. 3/ added metamucil as preventive measure for constipation. on hydrocortisone BID for hemorroids will add witch lauren pads. (2) Psychosis: Status: Acute Code(s): F29 - Unspecified psychosis not due to a substance or known physiological condition (3) Diabetes: Status: Acute Code(s): E11.9 - Type 2 diabetes mellitus without complications (4) HTN (hypertension): Status: Acute Code(s): I10 - Essential (primary) hypertension I spent minutes with the patient and/or on the patient floor today, greater than?50% of which was spent counseling/coordinating care. Reason for contiued inpatient stay Substantial Risk for: inability to function
[2021-09-08] MEDS: Hydrocortisone 2.5 % Rectal Cr 30 GM TUBE 1 APPL PR ×2 (08:25→19:49)
[2021-09-08] MEDS: Cyanocobalamin (Vitamin B-12) 1,000 MCG TABLET 1000 MCG PO (08:25)
[2021-09-08] MEDS: Sertraline HCL 50 MG TABLET PO (08:25)
[2021-09-08] MEDS: metFORMIN HCl ER 500 MG TAB.ER.24H PO (08:25)
[2021-09-08] MEDS: Magnesium Oxide 400 MG TABLET PO ×2 (08:25→19:47)
[2021-09-08] MEDS: risperiDONE 1 MG TABLET PO (08:25)
[2021-09-08] MEDS: Losartan Potassium 50 MG TABLET 100 MG PO (08:25)
[2021-09-08] MEDS: Metoprolol Tartrate 25 MG TABLET PO (08:25)
[2021-09-08] MEDS: risperiDONE 2 MG TABLET PO (19:47)
[2021-09-08] MEDS: hydrOXYzine HCL 25 MG TABLET PO (19:47)
[2021-09-08] MEDS: Acetaminophen 325 MG TABLET 650 MG PO (19:51)
[2021-09-08 20:06] VITALS: BP 115/53; PULSE 70; RESP 18; TEMP 36.7; O2SAT 94
[2021-09-09 08:00] VITALS: BP 119/57; PULSE 67; RESP 16; TEMP 36.5; O2SAT 95
[2021-09-09] MEDS: Cyanocobalamin (Vitamin B-12) 1,000 MCG TABLET 1000 MCG PO (09:28)
[2021-09-09] MEDS: Metoprolol Tartrate 25 MG TABLET PO (09:28)
[2021-09-09] MEDS: Ondansetron ODT 8 MG TAB.RAPDIS TRANSLINGU (09:28)
[2021-09-09] MEDS: metFORMIN HCl ER 500 MG TAB.ER.24H PO (09:28)
[2021-09-09] MEDS: risperiDONE 1 MG TABLET PO (09:28)
[2021-09-09] MEDS: Losartan Potassium 50 MG TABLET 100 MG PO (09:28)
[2021-09-09] MEDS: Hydrocortisone 2.5 % Rectal Cr 30 GM TUBE 1 APPL PR (09:28)
[2021-09-09] MEDS: Sertraline HCL 50 MG TABLET PO (09:28)
[2021-09-09] MEDS: Milk of Magnesia 30 ML ORAL.SUSP PO (09:28)
[2021-09-09] MEDS: Magnesium Oxide 400 MG TABLET PO (09:28)
--- NOTE | 2021-09-09 12:30 | PC.NURSE ---
Discharge Note: Patient alert ad oriented. Vital signs stable this AM. Patient aware and expresses readiness for discharge. Patient med complaint this AM, c/o hemorrhoid pain; cortizone cream applied. patient independent w/ADLs. Belongings accounted for and handed to patient and HCP. idea worker escorted patient and HCP to car.
== END 2021-09-09 12:03 | disposition home or self-care (01) | DRG 885 ==
PROVIDERS: Admitting Provider Psychiatry & Neurology Psychiatry; Visit Provider Psychiatry & Neurology Psychiatry
DX: F29 Unspecified psychosis not due to a substance or known physiological condition (principal); R41.0 Disorientation, unspecified; E11.9 Type 2 diabetes mellitus without complications; I10 Essential (primary) hypertension; Z20.822 Contact with and (suspected) exposure to COVID-19; Z87.891 Personal history of nicotine dependence; Z79.84 Long term (current) use of oral hypoglycemic drugs; Z79.899 Other long term (current) drug therapy
CPT/HCPCS: 36415; 80048; 80061; 80076; 81001; 82565; 83036; 84443; 85025; 87635